=== PATIENT | male | born 1945 | race Caucasian/White ===

== ENCOUNTER 2017-09-06 13:48 | Inpatient (IN) | payer MEDICARE, MEDICAID ==
[~2017-09-06] VITALS: Ht 170.2 cm; Wt 81.7 kg
[2017-09-06 14:26] LABS: BASO % 1 % (0-3); EOS # 0.1 x10^3/uL (0.0-0.7); EOS % 1 % (0-3); HEMATOCRIT 37.5 % (39.0-53.0); HEMOGLOBIN 12.4 g/dL (13.0-17.5); LYMPH # 4.7 x10^3/uL (1.0-4.8); LYMPH % 61 % (24-48); MEAN CORPUSCULAR HEMOGLOBIN 31 pg (25-35); MEAN CORPUSCULAR HGB CONC 33 g/dL (31-37); MEAN CORPUSCULAR VOLUME 94 fL (79-100); MONO # 1.6 x10^3/uL (0.0-1.1); MONO % 20 % (0-9); NEUT # 1.3 x10^3uL (1.8-7.7); NEUT % 17 % (31-73); PLATELET COUNT 56 x10^3/uL (140-400); RED BLOOD COUNT 3.98 x10^6/uL (4.30-5.70); RED CELL DISTRIBUTION WIDTH 15.6 % (11.5-14.5)
[2017-09-06 14:31] LABS: CALCIUM 9.2 mg/dL (8.5-10.1); CREATININE 2.2 mg/dL (0.7-1.3); GFR 29.7; POTASSIUM 4.2 mmol/L (3.5-5.1)
[2017-09-06 14:37] LABS: AMPHETAMINE/METHAMPHETAMINE NEG (NEG); BARBITURATES NEG (NEG); BENZODIAZEPINES NEG (NEG); CANNABINOIDS NEG (NEG); COCAINE NEG (NEG); METHADONE NEG (NEG); OPIATES NEG (NEG); PHENCYCLIDINE NEG (NEG)
[2017-09-06 14:39] LABS: BACTERIA,URINE 0 /HPF (0-FEW); BILIRUBIN,URINE NEG (NEG); CLARITY,URINE CLEAR; COLOR,URINE YELLOW; GLUCOSE,URINE NEG (NEG); HYALINE CASTS, URINE MOD /HPF; NITRITE,URINE NEG (NEG); RBC,URINE 0 /HPF (0-2); UROBILINOGEN,URINE 0.2 mg/dL (0.2 mg/dL); WBC,URINE OCC /HPF (0-4)
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
--- NOTE | 2017-09-06 15:40 | EKG ---
[address] [address] Test Date: 2017-09-06 Test Time: 14:06:04 Pat Name: TIERRA BEST Department: Room: [address] [place] [address] Gender: M Tour Counselor: DANIEL : 1945 Requested By: ELIZABETH BERMAN Order Number: [id number] Reading MD: Luis Alberto Richard MD Measurements Intervals [place] Rate: 74 P: 0 MS: 140 QRS: -47 QRSD: 124 T: 18 QT: 402 QTc: 452 Interpretive Statements SINUS RHYTHM ABNORMAL LEFT AXIS DEVIATION Electronically Signed On 09-11-2017 16:26:27 CDT by Luis Alberto Richard MD
[2017-09-06] MEDS ORDERED: MAG HYDROX/AL HYDROX/SIMETH 30 ML ORAL.SUSP PO PRN (15:45)
[2017-09-06] MEDS ORDERED: METHYL SALICYLATE/MENTHOL TOPICAL OINTMENT 29GM TUBE. TP PRN (15:45)
[2017-09-06] MEDS ORDERED: MAGNESIUM HYDROXIDE 2,400 MG/30 ML ORAL.SUSP. PO PRN (15:45)
[2017-09-06 15:58] VITALS: BP 137/77
[2017-09-06 16:02] LABS: PLT ESTIMATE DECREASED (ADEQUATE)
[2017-09-06 16:03] LABS: TOXIC GRANULATION PRESENT
[2017-09-06 16:11] LABS: TEAR DROP CELLS PRESENT
[2017-09-06 16:18] LABS: POLYCHROMASIA PRESENT
[2017-09-06] MEDS ORDERED: QUET50TA5 PO (16:29)
[2017-09-06] MEDS ORDERED: DIVA500T2 PO (16:29)
[2017-09-06] MEDS ORDERED: LISI40TA PO (16:29)
[2017-09-06] MEDS ORDERED: FURO-69 PO (16:29)
[2017-09-06] MEDS ORDERED: SENN1TAB21 PO (16:29)
[2017-09-06] MEDS ORDERED: VENL75CA PO (16:29)
[2017-09-06] MEDS ORDERED: PANT40TA3 PO (16:29)
[2017-09-06] MEDS ORDERED: POTA10TA10 PO (16:29)
--- NOTE | 2017-09-06 18:32 | PDOC ---
Exam Note: Lawrence Note: Please also refer to the separate dictated note~for this date of service dictated separately.~Patient seen individually. Discussed the patient with Nursing staff reviewed the chart.~Reviewed interim history and current functioning. Reviewed vital signs,~Labs/ Radiology~and current medications noted below. Continue current treatment with the changes noted in the dictated addendum note Assessment: Vital Signs: Vital Signs Date Time Temp Pulse Resp B/P (MAP) Pulse Ox O2 Delivery O2 Flow Rate FiO2 09/06/17 15:58 97.8 78 19 137/77 (97) 96 09/06/17 15:07 Room Air Labs: Laboratory Tests Test 09/06/17 14:02 09/06/17 14:20 White Blood Count 7.7 x10^3/uL (4.0-11.0) Red Blood Count 3.98 x10^6/uL (4.30-5.70) L Hemoglobin 12.4 g/dL (13.0-17.5) L Hematocrit 37.5 % (39.0-53.0) L Mean Corpuscular Volume 94 fL (79-100) Mean Corpuscular Hemoglobin 31 pg (25-35) Mean Corpuscular Hemoglobin Concent 33 g/dL (31-37) Red Cell Distribution Width 15.6 % (11.5-14.5) H Platelet Count 56 x10^3/uL (140-400) L Neutrophils (%) (Auto) 17 % (31-73) L Lymphocytes (%) (Auto) 61 % (24-48) H Monocytes (%) (Auto) 20 % (0-9) H Eosinophils (%) (Auto) 1 % (0-3) Basophils (%) (Auto) 1 % (0-3) Neutrophils # (Auto) 1.3 x10^3uL (1.8-7.7) L Lymphocytes # (Auto) 4.7 x10^3/uL (1.0-4.8) Monocytes # (Auto) 1.6 x10^3/uL (0.0-1.1) H Eosinophils # (Auto) 0.1 x10^3/uL (0.0-0.7) Basophils # (Auto) 0.0 x10^3/uL (0.0-0.2) Segmented Neutrophils % 13 % (35-66) L Band Neutrophils % 2 % (0-9) Lymphocytes % 40 % (24-48) Atypical Lymphocytes % (Manual) 39 % (0-0) H Monocytes % 1 % (0-10) Eosinophils % 2 % (0-5) Basophils % 1 % (0-3) Myelocytes % 1 % (0-0) H Promyelocytes % 1 % (0-0) H Toxic Granulation Present Dohle Bodies Present Platelet Estimate Decreased (ADEQUATE) Polychromasia Present Tear Drop Cells Present Sodium Level 140 mmol/L (136-145) Potassium Level 4.2 mmol/L (3.5-5.1) Chloride Level 104 mmol/L (98-107) Carbon Dioxide Level 22 mmol/L (21-32) Anion Gap 14 (6-14) Blood Urea Nitrogen 23 mg/dL (8-26) Creatinine 2.2 mg/dL (0.7-1.3) H Estimated GFR (Cockcroft-Gault) 29.7 Glucose Level 94 mg/dL (70-99) Calcium Level 9.2 mg/dL (8.5-10.1) Urine Collection Type Unknown Urine Color Yellow Urine Clarity Clear Urine pH 5.0 Urine Specific [place] 1.015 Urine Protein Neg (NEG-TRACE) Urine Glucose (UA) Neg mg/dL (NEG) Urine Ketones (Stick) Neg mg/dL (NEG) Urine Blood Trace (NEG) Urine Nitrite Neg (NEG) Urine Bilirubin Neg (NEG) Urine Urobilinogen Dipstick 0.2 mg/dL (0.2 mg/dL) Urine Leukocyte Esterase Neg (NEG) Urine RBC 0 /HPF (0-2) Urine WBC Occ /HPF (0-4) Urine Squamous Epithelial Cells None /LPF Urine Bacteria 0 /HPF (0-FEW) Urine Hyaline Casts Mod /HPF Urine Mucus Marked /LPF Urine Opiates Screen Neg (NEG) Urine Methadone Screen Neg (NEG) Urine Barbiturates Neg (NEG) Urine Phencyclidine Screen Neg (NEG) Urine Amphetamine/Methamphetamine Neg (NEG) Urine Benzodiazepines Screen Neg (NEG) Urine Cocaine Screen Neg (NEG) Urine Cannabinoids Screen Neg (NEG) Urine Ethyl Alcohol Neg (NEG) Current Medications: Meds: Current Medications Acetaminophen (Tylenol) 650 mg PRN Q6HRS PRN PO PAIN / TEMP; Start 09/06/17 at 15:45 Multi-Ingredient Ointment (Analgesic [place]) 1 paulino PRN QID PRN TP MUSCLE PAIN; Start 09/06/17 at 15:45 Al Hydroxide/Mg Hydroxide (Mylanta Plus Xs) 15 ml PRN AFTMEALHC PRN PO DYSPEPSIA; Start 09/06/17 at 15:45 Magnesium Hydroxide (Milk Of Magnesia) 2,400 mg PRN QHS PRN PO CONSTIPATION; Start 09/06/17 at 15:45 Furosemide (Lasix) 20 mg DAILY PO ; Start 09/07/17 at 09:00 Pantoprazole Sodium (Protonix) 40 mg BID PO ; Start 09/06/17 at 21:00; Stop at 21:00; Status DC Quetiapine Fumarate (SEROquel) 50 mg BID PO ; Start 09/06/17 at 21:00 Senna/Docusate Sodium (Senna Plus) 1 tab BID PO ; Start 09/06/17 at 21:00 Divalproex Sodium (Depakote) 500 mg BID PO ; Start 09/06/17 at 21:00 Lisinopril (Prinivil) 40 mg DAILY PO ; Start 09/07/17 at 09:00 Potassium Chloride (Klor-Con) 20 meq DAILYWBKFT PO ; Start 09/07/17 at 08:00 Venlafaxine HCl (Effexor Xr) 75 mg DAILY PO ; Start 09/07/17 at 09:00 Active Scripts Active Reported Seroquel (Quetiapine Fumarate) 50 Mg Tablet 50 Mg PO BID Senna Plus Tablet (Sennosides/Docusate Sodium) 1 Each Tablet 1 Each PO BID Protonix (Pantoprazole Sodium) 40 Mg Tablet.dr 40 Mg PO BID Potassium Chloride 10 Meq Tablet.er 20 Meq PO DAILY Lisinopril 40 Mg Tablet 40 Mg PO DAILY Lasix (Furosemide) 20 Mg Tablet 20 Mg PO DAILY Effexor Xr (Venlafaxine Hcl) 75 Mg Cap.er.24h 75 Mg PO DAILY Depakote (Divalproex Sodium) 500 Mg Tablet.dr 500 Mg PO BID I have reviewed the current psychotropics carefully including drug interactions. Risk benefit ratio favors no change other than as noted in my dictated progress note. Diagnosis: Problems: (1) Anxiety disorder (2) Dementia in Alzheimer's disease with delusions (3) Dementia in Alzheimer's disease with depression (4) Dementia, vascular, with delusions (5) Dementia, vascular, with depression (6) Impulse control disorder SIVA HUA MD Sep 06, 2017 18:32
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
[2017-09-06] MEDS: DIVALPROEX SODIUM 250 MG TABLET.DR. PO SCH (19:33)
[2017-09-06] MEDS: QUEtiapine 50 MG TABLET. PO SCH (19:33)
[2017-09-06] MEDS: SENNOSIDES/DOCUSATE 8.6/50MG TABLET. PO SCH (19:33)
--- NOTE | 2017-09-06 20:53 | PDOC ---
Exam Note: Lawrence Note: Please also refer to the separate dictated note~for this date of service dictated separately.~Patient seen individually. Discussed the patient with Nursing staff reviewed the chart.~Reviewed interim history and current functioning. Reviewed vital signs,~Labs/ Radiology~and current medications noted below. Continue current treatment with the changes noted in the dictated addendum note Assessment: Vital Signs: Vital Signs Date Time Temp Pulse Resp B/P (MAP) Pulse Ox O2 Delivery O2 Flow Rate FiO2 09/06/17 15:58 97.8 78 19 137/77 (97) 96 09/06/17 15:07 Room Air Labs: Laboratory Tests Test 09/06/17 14:02 09/06/17 14:20 White Blood Count 7.7 x10^3/uL (4.0-11.0) Red Blood Count 3.98 x10^6/uL (4.30-5.70) L Hemoglobin 12.4 g/dL (13.0-17.5) L Hematocrit 37.5 % (39.0-53.0) L Mean Corpuscular Volume 94 fL (79-100) Mean Corpuscular Hemoglobin 31 pg (25-35) Mean Corpuscular Hemoglobin Concent 33 g/dL (31-37) Red Cell Distribution Width 15.6 % (11.5-14.5) H Platelet Count 56 x10^3/uL (140-400) L Neutrophils (%) (Auto) 17 % (31-73) L Lymphocytes (%) (Auto) 61 % (24-48) H Monocytes (%) (Auto) 20 % (0-9) H Eosinophils (%) (Auto) 1 % (0-3) Basophils (%) (Auto) 1 % (0-3) Neutrophils # (Auto) 1.3 x10^3uL (1.8-7.7) L Lymphocytes # (Auto) 4.7 x10^3/uL (1.0-4.8) Monocytes # (Auto) 1.6 x10^3/uL (0.0-1.1) H Eosinophils # (Auto) 0.1 x10^3/uL (0.0-0.7) Basophils # (Auto) 0.0 x10^3/uL (0.0-0.2) Segmented Neutrophils % 13 % (35-66) L Band Neutrophils % 2 % (0-9) Lymphocytes % 40 % (24-48) Atypical Lymphocytes % (Manual) 39 % (0-0) H Monocytes % 1 % (0-10) Eosinophils % 2 % (0-5) Basophils % 1 % (0-3) Myelocytes % 1 % (0-0) H Promyelocytes % 1 % (0-0) H Toxic Granulation Present Dohle Bodies Present Platelet Estimate Decreased (ADEQUATE) Polychromasia Present Tear Drop Cells Present Sodium Level 140 mmol/L (136-145) Potassium Level 4.2 mmol/L (3.5-5.1) Chloride Level 104 mmol/L (98-107) Carbon Dioxide Level 22 mmol/L (21-32) Anion Gap 14 (6-14) Blood Urea Nitrogen 23 mg/dL (8-26) Creatinine 2.2 mg/dL (0.7-1.3) H Estimated GFR (Cockcroft-Gault) 29.7 Glucose Level 94 mg/dL (70-99) Calcium Level 9.2 mg/dL (8.5-10.1) Urine Collection Type Unknown Urine Color Yellow Urine Clarity Clear Urine pH 5.0 Urine Specific [place] 1.015 Urine Protein Neg (NEG-TRACE) Urine Glucose (UA) Neg mg/dL (NEG) Urine Ketones (Stick) Neg mg/dL (NEG) Urine Blood Trace (NEG) Urine Nitrite Neg (NEG) Urine Bilirubin Neg (NEG) Urine Urobilinogen Dipstick 0.2 mg/dL (0.2 mg/dL) Urine Leukocyte Esterase Neg (NEG) Urine RBC 0 /HPF (0-2) Urine WBC Occ /HPF (0-4) Urine Squamous Epithelial Cells None /LPF Urine Bacteria 0 /HPF (0-FEW) Urine Hyaline Casts Mod /HPF Urine Mucus Marked /LPF Urine Opiates Screen Neg (NEG) Urine Methadone Screen Neg (NEG) Urine Barbiturates Neg (NEG) Urine Phencyclidine Screen Neg (NEG) Urine Amphetamine/Methamphetamine Neg (NEG) Urine Benzodiazepines Screen Neg (NEG) Urine Cocaine Screen Neg (NEG) Urine Cannabinoids Screen Neg (NEG) Urine Ethyl Alcohol Neg (NEG) Current Medications: Meds: Current Medications Acetaminophen (Tylenol) 650 mg PRN Q6HRS PRN PO PAIN / TEMP; Start 09/06/17 at 15:45 Multi-Ingredient Ointment (Analgesic [place]) 1 paulino PRN QID PRN TP MUSCLE PAIN; Start 09/06/17 at 15:45 Al Hydroxide/Mg Hydroxide (Mylanta Plus Xs) 15 ml PRN AFTMEALHC PRN PO DYSPEPSIA; Start 09/06/17 at 15:45 Magnesium Hydroxide (Milk Of Magnesia) 2,400 mg PRN QHS PRN PO CONSTIPATION; Start 09/06/17 at 15:45 Furosemide (Lasix) 20 mg DAILY PO ; Start 09/07/17 at 09:00 Pantoprazole Sodium (Protonix) 40 mg BID PO ; Start 09/06/17 at 21:00; Stop at 21:00; Status DC Quetiapine Fumarate (SEROquel) 50 mg BID PO Last administered on 09/06/17at 19:33 ; Start 09/06/17 at 21:00 Senna/Docusate Sodium (Senna Plus) 1 tab BID PO Last administered on 09/06/17at 19:33; Start 09/06/17 at 21:00 Divalproex Sodium (Depakote) 500 mg BID PO Last administered on 09/06/17at 19:33 ; Start 09/06/17 at 21:00 Lisinopril (Prinivil) 40 mg DAILY PO ; Start 09/07/17 at 09:00 Potassium Chloride (Klor-Con) 20 meq DAILYWBKFT PO ; Start 09/07/17 at 08:00 Venlafaxine HCl (Effexor Xr) 75 mg DAILY PO ; Start 09/07/17 at 09:00 Active Scripts Active Reported Seroquel (Quetiapine Fumarate) 50 Mg Tablet 50 Mg PO BID Senna Plus Tablet (Sennosides/Docusate Sodium) 1 Each Tablet 1 Each PO BID Protonix (Pantoprazole Sodium) 40 Mg Tablet.dr 40 Mg PO BID Potassium Chloride 10 Meq Tablet.er 20 Meq PO DAILY Lisinopril 40 Mg Tablet 40 Mg PO DAILY Lasix (Furosemide) 20 Mg Tablet 20 Mg PO DAILY Effexor Xr (Venlafaxine Hcl) 75 Mg Cap.er.24h 75 Mg PO DAILY Depakote (Divalproex Sodium) 500 Mg Tablet.dr 500 Mg PO BID I have reviewed the current psychotropics carefully including drug interactions. Risk benefit ratio favors no change other than as noted in my dictated progress note. Diagnosis: Problems: (1) Agitation (2) Anxiety disorder (3) Impulse control disorder (4) Dementia, vascular, with depression (5) Dementia, vascular, with delusions (6) Dementia in Alzheimer's disease with depression (7) Dementia in Alzheimer's disease with delusions SIVA HUA MD Sep 06, 2017 20:53
[2017-09-06] MEDS ORDERED: PANTOPRAZOLE 40 MG TABLET. PO SCH (21:00)
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
[2017-09-07 05:48] VITALS: BP 146/69
[2017-09-07 07:16] LABS: VAL ACID 71 mcg/mL (50-100)
[2017-09-07] MEDS ORDERED: POTASSIUM CHLORIDE 20 MEQ TABLET.ER. PO SCH (08:00)
[2017-09-07] MEDS: DIVALPROEX SODIUM 250 MG TABLET.DR. PO SCH (08:36)
[2017-09-07] MEDS: QUEtiapine 50 MG TABLET. PO SCH ×2 (08:36→19:42)
[2017-09-07] MEDS: SENNOSIDES/DOCUSATE 8.6/50MG TABLET. PO SCH ×2 (08:36→19:42)
[2017-09-07] MEDS: VENLAFAXINE XR 37.5 MG CAP.ER.24H. PO SCH (08:40)
[2017-09-07] MEDS ORDERED: LISINOPRIL 20 MG TABLET PO SCH (09:00)
[2017-09-07] MEDS ORDERED: FUROSEMIDE 20 MG TABLET PO SCH (09:00)
[2017-09-07] MEDS: QUEtiapine 25 MG TABLET. PO SCH (11:58)
--- NOTE | 2017-09-07 14:07 | RAD ---
Renal ultrasound, 09/07/2017: History: Abnormal renal function The right kidney measures 7.5 cm in length while the left kidney measures 10.3 cm. A 1.9 cm parapelvic renal cyst is present on the left. There is no evidence of hydronephrosis. The renal parenchymal echogenicity is within normal limits. The bladder was not adequately delineated due to lack of distention. IMPRESSION: 1. Small left renal cyst. 2. Small right kidney. 3. No evidence of renal obstruction.
[2017-09-07 14:29] LABS: THYROID STIM HORMONE (TSH) 2.962 uIU/mL (0.358-3.740)
[2017-09-07 16:22] VITALS: BP 135/74
[2017-09-07 19:10] LABS: T3 TOTAL 22 ng/dL (71-180)
[2017-09-07] MEDS: DIVALPROEX 125 MG CAP.SPRINK PO SCH (19:43)
[2017-09-07] MEDS: CHOLECALCIFEROL (VITAMIN D3) 50,000 UNIT CAPSULE PO SCH (19:43)
--- NOTE | 2017-09-07 20:51 | PDOC ---
Exam Note: [place] Note: Please also refer to the separate dictated note~for this date of service dictated separately.~Patient seen individually. Discussed the patient with Nursing staff reviewed the chart.~Reviewed interim history and current functioning. Reviewed vital signs,~Labs/ Radiology~and current medications noted below. Continue current treatment with the changes noted in the dictated addendum note Assessment: Vital Signs: Vital Signs Date Time Temp Pulse Resp B/P (MAP) Pulse Ox O2 Delivery O2 Flow Rate FiO2 09/07/17 16:22 97.6 81 18 135/74 (94) 93 09/06/17 15:07 Room Air I&O Intake and Output 09/07/17 07:00 Intake Total 360 ml Balance 360 ml Intake Oral 360 ml # Voids 1 Labs: Laboratory Tests Test 09/07/17 06:30 Magnesium Level 1.8 mg/dL (1.8-2.4) Iron Level 182 ug/dL (65-175) H Total Iron Binding Capacity 281 ug/dL (250-450) Iron Saturation 65 % (15-34) H Triglycerides Level 230 mg/dL (0-150) H Cholesterol Level 151 mg/dL (0-200) LDL Cholesterol, Calculated 70 mg/dL (0-100) VLDL Cholesterol, Calculated 46 mg/dL (0-40) H Non-HDL Cholesterol Calculated 116 mg/dL (0-129) HDL Cholesterol 35 mg/dL (40-60) L Cholesterol/HDL Ratio 4.0 Vitamin B12 Level 300 pg/mL (247-911) 25-Hydroxy Vitamin D Total < 4.2 ng/mL (30-100) L Thyroid Stimulating Hormone (TSH) 2.962 uIU/mL (0.358-3.740) Thyroxine (T4) Pending Total Triiodothyronine (TT3) 22 ng/dL (71-180) L Valproic Acid Level 71 mcg/mL (50-100) Valproic Acid Last Dose Date 09/06/2017 Valproic Acid Last Dose Time 2100 Rapid Plasma Reagin Pending Current Medications: Meds: Current Medications Acetaminophen (Tylenol) 650 mg PRN Q6HRS PRN PO PAIN / TEMP; Start 09/06/17 at 15:45 Multi-Ingredient Ointment (Analgesic [place]) 1 paulino PRN QID PRN TP MUSCLE PAIN; Start 09/06/17 at 15:45 Al Hydroxide/Mg Hydroxide (Mylanta Plus Xs) 15 ml PRN AFTMEALHC PRN PO DYSPEPSIA; Start 09/06/17 at 15:45 Magnesium Hydroxide (Milk Of Magnesia) 2,400 mg PRN QHS PRN PO CONSTIPATION; Start 09/06/17 at 15:45 Furosemide (Lasix) 20 mg DAILY PO Last administered on 09/07/17 08:40; Start at 09:00; Stop 09/07/17 at 18:21; Status DC Pantoprazole Sodium (Protonix) 40 mg BID PO ; Start 09/06/17 at 21:00; Stop at 21:00; Status DC Quetiapine Fumarate (SEROquel) 50 mg BID PO Last administered on 09/07/17 19:42 ; Start 09/06/17 at 21:00 Senna/Docusate Sodium (Senna Plus) 1 tab BID PO Last administered on 09/07/17 19:42; Start 09/06/17 at 21:00 Divalproex Sodium (Depakote) 500 mg BID PO Last administered on 09/07/17 08:36 ; Start 09/06/17 at 21:00; Stop 09/07/17 at 18:28; Status DC Lisinopril (Prinivil) 40 mg DAILY PO Last administered on 09/07/17 08:40; Start 09/07/17 at 09:00; Stop 09/07/17 at 18:21; Status DC Potassium Chloride (Klor-Con) 20 meq DAILYWBKFT PO Last administered on 08:40; Start 09/07/17 at 08:00; Stop 09/07/17 at 18:21; Status DC Venlafaxine HCl (Effexor Xr) 75 mg DAILY PO Last administered on 09/07/17 08:40 ; Start 09/07/17 at 09:00 Quetiapine Fumarate (SEROquel) 12.5 mg NOON PO Last administered on 09/07/17 11 :58; Start 09/07/17 at 12:00 Vitamin D (Vitamin D3) 50,000 unit WEEKLY PO Last administered on 09/07/17 19: 43; Start 09/07/17 at 19:00 Divalproex Sodium (Depakote Sprinkles) 500 mg BID PO Last administered on at 19:43; Start 09/07/17 at 21:00 Active Scripts Active Reported Seroquel (Quetiapine Fumarate) 50 Mg Tablet 50 Mg PO BID Senna Plus Tablet (Sennosides/Docusate Sodium) 1 Each Tablet 1 Each PO BID Protonix (Pantoprazole Sodium) 40 Mg Tablet.dr 40 Mg PO BID Potassium Chloride 10 Meq Tablet.er 20 Meq PO DAILY Lisinopril 40 Mg Tablet 40 Mg PO DAILY Lasix (Furosemide) 20 Mg Tablet 20 Mg PO DAILY Effexor Xr (Venlafaxine Hcl) 75 Mg Cap.er.24h 75 Mg PO DAILY Depakote (Divalproex Sodium) 500 Mg Tablet.dr 500 Mg PO BID I have reviewed the current psychotropics carefully including drug interactions. Risk benefit ratio favors no change other than as noted in my dictated progress note. Diagnosis: Problems: (1) Agitation (2) Anxiety disorder (3) Impulse control disorder (4) Dementia, vascular, with depression (5) Dementia, vascular, with delusions (6) Dementia in Alzheimer's disease with depression (7) Dementia in Alzheimer's disease with delusions SIVA HUA MD Sep 07, 2017 20:51
[2017-09-07 22:09] LABS: THYROXINE 1.1 ug/dL (4.5-12.0)
[2017-09-08 06:16] VITALS: BP 123/83
[2017-09-08] MEDS: DIVALPROEX 125 MG CAP.SPRINK PO SCH ×2 (09:31→20:10)
[2017-09-08] MEDS: SENNOSIDES/DOCUSATE 8.6/50MG TABLET. PO SCH ×2 (09:31→20:10)
[2017-09-08] MEDS: VENLAFAXINE XR 37.5 MG CAP.ER.24H. PO SCH (09:31)
[2017-09-08] MEDS: QUEtiapine 50 MG TABLET. PO SCH ×2 (09:31→20:10)
[2017-09-08 10:20] LABS: % SEGS 7 % (35-66)
[2017-09-08 10:21] LABS: % BANDS 9 % (0-9); % BASOS 0 % (0-3); % EOS 0 % (0-5); % LYMPHS 37 % (24-48); % MONOS 0 % (0-10)
[2017-09-08 10:22] LABS: % OTHERS 46 % (0-0); % PROS 0 % (0-0)
[2017-09-08 10:23] LABS: % ATYL 0 % (0-0)
[2017-09-08 10:25] LABS: NUCLEATED RBC 13
[2017-09-08 10:38] LABS: WHITE BLOOD COUNT 6.8 x10^3/uL (4.0-11.0)
[2017-09-08] MEDS: QUEtiapine 25 MG TABLET. PO SCH (11:57)
[2017-09-08 12:13] LABS: % MYELOS 1 % (0-0)
[2017-09-08 15:51] VITALS: BP 112/72
--- NOTE | 2017-09-08 23:13 | PDOC ---
Exam Note: [place] Note: Please also refer to the separate dictated note~for this date of service dictated separately.~Patient seen individually. Discussed the patient with Nursing staff reviewed the chart.~Reviewed interim history and current functioning. Reviewed vital signs,~Labs/ Radiology~and current medications noted below. Continue current treatment with the changes noted in the dictated addendum note Assessment: Vital Signs: Vital Signs Date Time Temp Pulse Resp B/P (MAP) Pulse Ox O2 Delivery O2 Flow Rate FiO2 09/08/17 15:51 97.5 74 18 112/72 (85) 100 09/06/17 15:07 Room Air I&O Intake and Output 09/08/17 07:00 Intake Total 1080 ml Balance 1080 ml Intake Oral 1080 ml Current Medications: Meds: Current Medications Acetaminophen (Tylenol) 650 mg PRN Q6HRS PRN PO PAIN / TEMP; Start 09/06/17 at 15:45 Multi-Ingredient Ointment (Analgesic [place]) 1 paulino PRN QID PRN TP MUSCLE PAIN; Start 09/06/17 at 15:45 Al Hydroxide/Mg Hydroxide (Mylanta Plus Xs) 15 ml PRN AFTMEALHC PRN PO DYSPEPSIA; Start 09/06/17 at 15:45 Magnesium Hydroxide (Milk Of Magnesia) 2,400 mg PRN QHS PRN PO CONSTIPATION; Start 09/06/17 at 15:45 Furosemide (Lasix) 20 mg DAILY PO Last administered on 09/07/17at 08:40; Start at 09:00; Stop 09/07/17 at 18:21; Status DC Pantoprazole Sodium (Protonix) 40 mg BID PO ; Start 09/06/17 at 21:00; Stop at 21:00; Status DC Quetiapine Fumarate (SEROquel) 50 mg BID PO Last administered on 09/08/17at 20:10 ; Start 09/06/17 at 21:00 Senna/Docusate Sodium (Senna Plus) 1 tab BID PO Last administered on 09/08/17at 20:10; Start 09/06/17 at 21:00 Divalproex Sodium (Depakote) 500 mg BID PO Last administered on 09/07/17at 08:36 ; Start 09/06/17 at 21:00; Stop 4/5/18 at 18:28; Status DC Lisinopril (Prinivil) 40 mg DAILY PO Last administered on 09/07/17 08:40; Start 09/07/17 at 09:00; Stop 09/07/17 at 18:21; Status DC Potassium Chloride (Klor-Con) 20 meq DAILYWBKFT PO Last administered on at 08:40; Start 09/07/17 at 08:00; Stop 09/07/17 at 18:21; Status DC Venlafaxine HCl (Effexor Xr) 75 mg DAILY PO Last administered on 09/08/17 09:31 ; Start 09/07/17 at 09:00 Quetiapine Fumarate (SEROquel) 12.5 mg NOON PO Last administered on 09/08/17 11 :57; Start 09/07/17 at 12:00 Vitamin D (Vitamin D3) 50,000 unit WEEKLY PO Last administered on 09/07/17at 19: 43; Start 09/07/17 at 19:00 Divalproex Sodium (Depakote Sprinkles) 500 mg BID PO Last administered on at 20:10; Start 09/07/17 at 21:00 Active Scripts Active Reported Seroquel (Quetiapine Fumarate) 50 Mg Tablet 50 Mg PO BID Senna Plus Tablet (Sennosides/Docusate Sodium) 1 Each Tablet 1 Each PO BID Protonix (Pantoprazole Sodium) 40 Mg Tablet.dr 40 Mg PO BID Potassium Chloride 10 Meq Tablet.er 20 Meq PO DAILY Lisinopril 40 Mg Tablet 40 Mg PO DAILY Lasix (Furosemide) 20 Mg Tablet 20 Mg PO DAILY Effexor Xr (Venlafaxine Hcl) 75 Mg Cap.er.24h 75 Mg PO DAILY Depakote (Divalproex Sodium) 500 Mg Tablet.dr 500 Mg PO BID I have reviewed the current psychotropics carefully including drug interactions. Risk benefit ratio favors no change other than as noted in my dictated progress note. Diagnosis: Problems: (1) Agitation (2) Anxiety disorder (3) Impulse control disorder (4) Dementia, vascular, with depression (5) Dementia, vascular, with delusions (6) Dementia in Alzheimer's disease with depression (7) Dementia in Alzheimer's disease with delusions SIVA HUA MD Sep 08, 2017 23:13
--- NOTE | 2017-09-08 23:53 | PN ---
DATE: 09/07/2017 This late entry 09/07/2017 covers elements not covered in my initial note 09/07/2017. I met with the patient in the evening of 09/07/2017 and he was staffed at a treatment team meeting with the entire team morning of 09/07/2017. Overall, the patient has had some difficulty taking his medications and nursing staff had paged me earlier in the day. We changed the Depakote delayed release to Sprinkles. At the treatment team meeting, reviewed his history and behaviors prompting admission including cursing and swinging at staff at this closed fist. He is a little more oriented than he seems on the surface, however. REVIEW OF SYSTEMS: Ambulation impaired, in wheelchair. No CV, , pulmonary, eye, ENT system symptoms on review. MENTAL STATUS EXAM: Oriented to himself and situation. Speech moderate latency, often responses monosyllabic. Abstraction fair, computation impaired, language function intact, attention span short. Memory is impaired. No active suicidal or homicidal ideation. IMPRESSION: Major neurocognitive disorder, vascular with delusion, depression, behavioral disturbance, major depressive disorder with psychotic features; impulse control disorder. Rest unchanged from initial note. PLAN: Valproic acid level is 71 therapeutic. Continue Depakote Sprinkles, Effexor along with increased Seroquel. Adjust further as clinically indicated. MAN Aleksey HUA MD DR: JENY/charlette JOB#: [id number] / [id number]
[2017-09-09 05:47] VITALS: BP 129/65
[2017-09-09] MEDS: DIVALPROEX 125 MG CAP.SPRINK PO SCH ×2 (08:24→19:43)
[2017-09-09] MEDS: QUEtiapine 50 MG TABLET. PO SCH ×2 (08:24→19:43)
[2017-09-09] MEDS: VENLAFAXINE XR 37.5 MG CAP.ER.24H. PO SCH (08:25)
[2017-09-09] MEDS: SENNOSIDES/DOCUSATE 8.6/50MG TABLET. PO SCH ×2 (08:25→19:43)
[2017-09-09] MEDS: QUEtiapine 25 MG TABLET. PO SCH (12:17)
[2017-09-09 15:58] VITALS: BP 128/68
--- NOTE | 2017-09-09 22:45 | PDOC ---
Exam Note: [place] Note: Please also refer to the separate dictated note~for this date of service dictated separately.~Patient seen individually. Discussed the patient with Nursing staff reviewed the chart.~Reviewed interim history and current functioning. Reviewed vital signs,~Labs/ Radiology~and current medications noted below. Continue current treatment with the changes noted in the dictated addendum note Assessment: Vital Signs: Vital Signs Date Time Temp Pulse Resp B/P (MAP) Pulse Ox O2 Delivery O2 Flow Rate FiO2 09/09/17 15:58 96.7 73 18 128/68 (88) 95 09/06/17 15:07 Room Air I&O Intake and Output 09/09/17 07:00 Intake Total 960 ml Balance 960 ml Intake Oral 960 ml # Bowel Movements 1 Current Medications: Meds: Current Medications Acetaminophen (Tylenol) 650 mg PRN Q6HRS PRN PO PAIN / TEMP; Start 09/06/17 at 15:45 Multi-Ingredient Ointment (Analgesic [place]) 1 paulino PRN QID PRN TP MUSCLE PAIN; Start 09/06/17 at 15:45 Al Hydroxide/Mg Hydroxide (Mylanta Plus Xs) 15 ml PRN AFTMEALHC PRN PO DYSPEPSIA; Start 09/06/17 at 15:45 Magnesium Hydroxide (Milk Of Magnesia) 2,400 mg PRN QHS PRN PO CONSTIPATION; Start 09/06/17 at 15:45 Furosemide (Lasix) 20 mg DAILY PO Last administered on 09/07/17at 08:40; Start at 09:00; Stop 09/07/17 at 18:21; Status DC Pantoprazole Sodium (Protonix) 40 mg BID PO ; Start 09/06/17 at 21:00; Stop at 21:00; Status DC Quetiapine Fumarate (SEROquel) 50 mg BID PO Last administered on 09/09/17at 19:43 ; Start 09/06/17 at 21:00 Senna/Docusate Sodium (Senna Plus) 1 tab BID PO Last administered on 09/09/17at 19:43; Start 09/06/17 at 21:00 Divalproex Sodium (Depakote) 500 mg BID PO Last administered on 09/07/17at 08:36 ; Start 09/06/17 at 21:00; Stop 09/07/17 at 18:28; Status DC Lisinopril (Prinivil) 40 mg DAILY PO Last administered on 09/07/17 08:40; Start 09/07/17 at 09:00; Stop 09/07/17 at 18:21; Status DC Potassium Chloride (Klor-Con) 20 meq DAILYWBKFT PO Last administered on 08:40; Start 09/07/17 at 08:00; Stop 09/07/17 at 18:21; Status DC Venlafaxine HCl (Effexor Xr) 75 mg DAILY PO Last administered on 09/09/17 08:25 ; Start 09/07/17 at 09:00 Quetiapine Fumarate (SEROquel) 12.5 mg NOON PO Last administered on 09/09/17 12 :17; Start 09/07/17 at 12:00 Vitamin D (Vitamin D3) 50,000 unit WEEKLY PO Last administered on 09/07/17 19: 43; Start 09/07/17 at 19:00 Divalproex Sodium (Depakote Sprinkles) 500 mg BID PO Last administered on 19:43; Start 09/07/17 at 21:00 Active Scripts Active Reported Seroquel (Quetiapine Fumarate) 50 Mg Tablet 50 Mg PO BID Senna Plus Tablet (Sennosides/Docusate Sodium) 1 Each Tablet 1 Each PO BID Protonix (Pantoprazole Sodium) 40 Mg Tablet. 40 Mg PO BID Potassium Chloride 10 Meq Tablet.er 20 Meq PO DAILY Lisinopril 40 Mg Tablet 40 Mg PO DAILY Lasix (Furosemide) 20 Mg Tablet 20 Mg PO DAILY Effexor Xr (Venlafaxine Hcl) 75 Mg Cap.er.24h 75 Mg PO DAILY Depakote (Divalproex Sodium) 500 Mg Tablet.dr 500 Mg PO BID I have reviewed the current psychotropics carefully including drug interactions. Risk benefit ratio favors no change other than as noted in my dictated progress note. Diagnosis: Problems: (1) Agitation (2) Anxiety disorder (3) Impulse control disorder (4) Dementia, vascular, with depression (5) Dementia, vascular, with delusions (6) Dementia in Alzheimer's disease with depression (7) Dementia in Alzheimer's disease with delusions SIVA HUA MD Sep 09, 2017 22:45
[2017-09-10 05:52] VITALS: BP 134/71
[2017-09-10] MEDS: QUEtiapine 50 MG TABLET. PO SCH ×2 (07:52→19:49)
[2017-09-10] MEDS: SENNOSIDES/DOCUSATE 8.6/50MG TABLET. PO SCH ×2 (07:52→19:49)
[2017-09-10] MEDS: DIVALPROEX 125 MG CAP.SPRINK PO SCH ×2 (07:52→19:49)
[2017-09-10] MEDS: VENLAFAXINE XR 37.5 MG CAP.ER.24H. PO SCH (07:53)
[2017-09-10] MEDS: QUEtiapine 25 MG TABLET. PO SCH (11:55)
[2017-09-10 15:40] VITALS: BP 104/74
[2017-09-10] MEDS ORDERED: CHOLECALCIFEROL (VITAMIN D3) 50,000 UNIT CAPSULE PO SCH (16:00)
--- NOTE | 2017-09-10 20:50 | PDOC ---
Exam Note: [place] Note: Please also refer to the separate dictated note~for this date of service dictated separately.~Patient seen individually. Discussed the patient with Nursing staff reviewed the chart.~Reviewed interim history and current functioning. Reviewed vital signs,~Labs/ Radiology~and current medications noted below. Continue current treatment with the changes noted in the dictated addendum note Assessment: Vital Signs: Vital Signs Date Time Temp Pulse Resp B/P (MAP) Pulse Ox O2 Delivery O2 Flow Rate FiO2 09/10/17 15:40 97.9 75 20 104/74 (84) 95 09/06/17 15:07 Room Air I&O Intake and Output 09/10/17 07:00 Intake Total 1000 ml Balance 1000 ml Intake Oral 1000 ml # Bowel Movements 1 Current Medications: Meds: Current Medications Acetaminophen (Tylenol) 650 mg PRN Q6HRS PRN PO PAIN / TEMP; Start 09/06/17 at 15:45 Multi-Ingredient Ointment (Analgesic [place]) 1 paulino PRN QID PRN TP MUSCLE PAIN; Start 09/06/17 at 15:45 Al Hydroxide/Mg Hydroxide (Mylanta Plus Xs) 15 ml PRN AFTMEALHC PRN PO DYSPEPSIA; Start 09/06/17 at 15:45 Magnesium Hydroxide (Milk Of Magnesia) 2,400 mg PRN QHS PRN PO CONSTIPATION; Start 09/06/17 at 15:45 Furosemide (Lasix) 20 mg DAILY PO Last administered on 09/07/17at 08:40; Start at 09:00; Stop 09/07/17 at 18:21; Status DC Pantoprazole Sodium (Protonix) 40 mg BID PO ; Start 09/06/17 at 21:00; Stop at 21:00; Status DC Quetiapine Fumarate (SEROquel) 50 mg BID PO Last administered on 09/10/17 19:49 ; Start 09/06/17 at 21:00 Senna/Docusate Sodium (Senna Plus) 1 tab BID PO Last administered on 09/10/17at 19:49; Start 09/06/17 at 21:00 Divalproex Sodium (Depakote) 500 mg BID PO Last administered on 09/07/17at 08:36 ; Start 09/06/17 at 21:00; Stop 09/07/17 at 18:28; Status DC Lisinopril (Prinivil) 40 mg DAILY PO Last administered on 09/07/17at 08:40; Start 09/07/17 at 09:00; Stop 09/07/17 at 18:21; Status DC Potassium Chloride (Klor-Con) 20 meq DAILYWBKFT PO Last administered on at 08:40; Start 09/07/17 at 08:00; Stop 09/07/17 at 18:21; Status DC Venlafaxine HCl (Effexor Xr) 75 mg DAILY PO Last administered on 09/10/17at 07:53 ; Start 09/07/17 at 09:00 Quetiapine Fumarate (SEROquel) 12.5 mg NOON PO Last administered on 09/10/17at 11 :55; Start 09/07/17 at 12:00; Stop 09/10/17 at 18:18; Status DC Vitamin D (Vitamin D3) 50,000 unit WEEKLY PO Last administered on 09/07/17at 19: 43; Start 09/07/17 at 19:00 Divalproex Sodium (Depakote Sprinkles) 500 mg BID PO Last administered on at 19:49; Start 09/07/17 at 21:00 Vitamin D (Vitamin D3) 50,000 unit WEEKLY PO ; Start 09/10/17 at 16:00; Stop 09/10 at 16:00; Status DC Levothyroxine Sodium (Synthroid) 25 mcg DAILY07 PO ; Start 09/11/17 at 07:00 Quetiapine Fumarate (SEROquel) 25 mg NOON PO ; Start 09/11/17 at 12:00 Active Scripts Active Reported Seroquel (Quetiapine Fumarate) 50 Mg Tablet 50 Mg PO BID Senna Plus Tablet (Sennosides/Docusate Sodium) 1 Each Tablet 1 Each PO BID Protonix (Pantoprazole Sodium) 40 Mg Tablet.dr 40 Mg PO BID Potassium Chloride 10 Meq Tablet.er 20 Meq PO DAILY Lisinopril 40 Mg Tablet 40 Mg PO DAILY Lasix (Furosemide) 20 Mg Tablet 20 Mg PO DAILY Effexor Xr (Venlafaxine Hcl) 75 Mg Cap.er.24h 75 Mg PO DAILY Depakote (Divalproex Sodium) 500 Mg Tablet.dr 500 Mg PO BID I have reviewed the current psychotropics carefully including drug interactions. Risk benefit ratio favors no change other than as noted in my dictated progress note. Diagnosis: Problems: (1) Agitation (2) Anxiety disorder (3) Impulse control disorder (4) Dementia, vascular, with depression (5) Dementia, vascular, with delusions (6) Dementia in Alzheimer's disease with depression (7) Dementia in Alzheimer's disease with delusions SIVA HUA MD Sep 10, 2017 20:50
--- NOTE | 2017-09-10 21:49 | PN ---
DATE: 09/10/2017 This is late entry of 09/08/2017 covers elements not covered in my initial note 09/08/2017. Met with the patient in the evening of 09/08/2017. The patient slept 8 hours previous evening, did well the previous night, did reasonably well morning of 09/08/2017. After lunch, he was yelling in the hallway agitated. Nursing staff gave him coca-cola, which is something seems to assuage his agitation and he did better. REVIEW OF SYSTEMS: Ambulation impaired. No CV, , pulmonary, eye, ENT system symptoms on review. Reliability poor. MENTAL STATUS EXAM: Oriented to self, situation. Speech has some latency, often responses monosyllabic. Abstraction fair, computation impaired, language function intact, attention span short. Mood and affect somewhat anxious, labile. LABORATORY DATA: Reviewed. IMPRESSION: Major neurocognitive disorder, Alzheimer, vascular with delusion, depression Rest unchanged. PLAN: Continue current psychotropics. Adjust as clinically indicated. MAN Aleksey HUA MD DR: JENY/charlette JOB#: [id number] / [id number]
--- NOTE | 2017-09-10 22:14 | PN ---
DATE: 09/09/2017 This late entry of 09/09/2017 covers elements not covered in my initial note for 09/09/2017. SUBJECTIVE: I met with the patient in the evening of 09/09/2017. The patient remains somewhat withdrawn at times, yelling, cursing in the [place], resistive with meds and assessment. REVIEW OF SYSTEMS: Ambulation impaired, in wheelchair. No CV, , pulmonary, eye, ENT system symptoms on review. Reliability poor. MENTAL STATUS EXAM: Oriented to himself and situation. Speech moderate latency, often responses monosyllabic. Abstraction fair, computation impaired, language function intact, attention span short. Mood and affect, intermittently labile. LABORATORY DATA: Reviewed. Valproic acid level therapeutic at 71. IMPRESSION: Major depressive disorder with psychotic features; major neurocognitive disorder, Alzheimer, vascular with delusion, depression. PLAN: Continue current psychotropics, increase the noon Seroquel from 12.5 to 25 mg. Adjust further as clinically indicated. MAN Aleksey HUA MD DR: JENY/charlette JOB#: [id number] / [id number]
--- NOTE | 2017-09-11 00:43 | PN ---
DATE: 09/10/2017 SUBJECTIVE: The patient was seen today to go over his lab work and it showed that he has his vitamin D is low at 4.2 and although, the TSH is normal. His total T4 and free T4 were low. His serum iron is 182, but TIBC is low at 281, and he has obviously thrombocytopenia with a lymphocytosis, although I did have no documentation that he has chronic lymphatic leukemia. OBJECTIVE: GENERAL: On examining him, he is generally hemodynamically stable. VITAL SIGNS: His heart rate was 75, blood pressure 104/74, temperature was 97.9, respiratory rate 20, and oxygen saturation was 95%. The rest of clinical exam is stable. He continued to be wheelchair bound wheeling himself around. I did start him on ergocalciferol 50,000 International Units once a week. I have also started him on a small dose of Synthroid 25 mcg once a day given his lab abnormalities. I will repeat all her lab works again tomorrow as we stopped all his antihypertensive especially, the LESLEY inhibitors and diuretics a few days ago. LINDY THOMPSON MD DR: JO/charlette JOB#: [id number] / [id number]
[2017-09-11 06:17] VITALS: BP 116/74
[2017-09-11] MEDS: LEVOTHYROXINE 25 MCG TABLET. PO SCH (06:24)
[2017-09-11 07:38] LABS: HEMATOCRIT 34.9 % (39.0-53.0); HEMOGLOBIN 11.8 g/dL (13.0-17.5); RED BLOOD COUNT 3.73 x10^6/uL (4.30-5.70); RED CELL DISTRIBUTION WIDTH 16.2 % (11.5-14.5)
[2017-09-11 07:45] LABS: ALBUMIN 2.4 g/dL (3.4-5.0); ALBUMIN/GLOBULIN RATIO 0.6 (1.0-1.7); CALCIUM 9.1 mg/dL (8.5-10.1); CREATININE 1.9 mg/dL (0.7-1.3); GFR 35.2; POTASSIUM 4.7 mmol/L (3.5-5.1); TOTAL BILIRUBIN 0.2 mg/dL (0.2-1.0); TOTAL PROTEIN 6.5 g/dL (6.4-8.2)
[2017-09-11] MEDS: VENLAFAXINE XR 37.5 MG CAP.ER.24H. PO SCH (08:24)
[2017-09-11] MEDS: QUEtiapine 50 MG TABLET. PO SCH ×2 (08:24→19:27)
[2017-09-11] MEDS: DIVALPROEX 125 MG CAP.SPRINK PO SCH ×2 (08:24→19:27)
[2017-09-11] MEDS: SENNOSIDES/DOCUSATE 8.6/50MG TABLET. PO SCH ×2 (08:25→19:27)
[2017-09-11] MEDS: QUEtiapine 25 MG TABLET. PO SCH (12:05)
[2017-09-11 16:08] VITALS: BP 117/78
--- NOTE | 2017-09-11 21:26 | PN ---
DATE: 09/10/2017 PSYCHIATRIC PROGRESS NOTE This is a late entry for 09/10/2017, covers elements not covered in my initial note of 09/10/2017. SUBJECTIVE: I met with the patient in the evening of 09/10/2017. The patient did well in the morning, but by the afternoon, he was quite agitated with another patient, tried to hit this other patient, cursing, loud, disruptive, staff members noted behaviors, some of what prompted this admission. REVIEW OF SYSTEMS: Ambulation impaired, in wheelchair. No CV, , pulmonary, eye, ENT system symptoms on review. MENTAL STATUS EXAM: Oriented to himself and situation. Speech coherent, rapid. Abstraction fair, computation impaired, language function intact, attention span short. Mood and affect remain somewhat labile. LABORATORY DATA: Reviewed. IMPRESSION: Dementia, Alzheimer, vascular with depression, delusion, behavioral disturbance; anxiety disorder, unspecified; impulse control disorder, unspecified. PLAN: Increase the noon Seroquel from 12.5 mg to 25 mg. Maintain rest of the psychotropics mentioned in my initial note. Valproic acid level therapeutic at 71. MAN Aleksey HUA MD DR: JENY/charlette JOB#: [id number] / [id number]
--- NOTE | 2017-09-11 22:00 | PDOC ---
Exam Note: Lawrence Note: Please also refer to the separate dictated note~for this date of service dictated separately.~Patient seen individually. Discussed the patient with Nursing staff reviewed the chart.~Reviewed interim history and current functioning. Reviewed vital signs,~Labs/ Radiology~and current medications noted below. Continue current treatment with the changes noted in the dictated addendum note Assessment: Vital Signs: Vital Signs Date Time Temp Pulse Resp B/P (MAP) Pulse Ox O2 Delivery O2 Flow Rate FiO2 09/11/17 16:08 98.0 75 16 117/78 (91) 97 09/06/17 15:07 Room Air I&O Intake and Output 09/11/17 07:00 Intake Total 1240 ml Balance 1240 ml Intake Oral 1240 ml # Voids 2 # Bowel Movements 1 Labs: Laboratory Tests Test 09/11/17 07:03 White Blood Count 6.0 x10^3/uL (4.0-11.0) Red Blood Count 3.73 x10^6/uL (4.30-5.70) L Hemoglobin 11.8 g/dL (13.0-17.5) L Hematocrit 34.9 % (39.0-53.0) L Mean Corpuscular Volume 94 fL (79-100) Mean Corpuscular Hemoglobin 32 pg (25-35) Mean Corpuscular Hemoglobin Concent 34 g/dL (31-37) Red Cell Distribution Width 16.2 % (11.5-14.5) H Platelet Count 55 x10^3/uL (140-400) L Sodium Level 142 mmol/L (136-145) Potassium Level 4.7 mmol/L (3.5-5.1) Chloride Level 106 mmol/L (98-107) Carbon Dioxide Level 22 mmol/L (21-32) Anion Gap 14 (6-14) Blood Urea Nitrogen 30 mg/dL (8-26) H Creatinine 1.9 mg/dL (0.7-1.3) H Estimated GFR (Cockcroft-Gault) 35.2 BUN/Creatinine Ratio 16 (6-20) Glucose Level 84 mg/dL (70-99) Calcium Level 9.1 mg/dL (8.5-10.1) Total Bilirubin 0.2 mg/dL (0.2-1.0) Aspartate Amino Transferase (AST) 57 U/L (15-37) H Alanine Aminotransferase (ALT) 24 U/L (16-63) Alkaline Phosphatase 291 U/L (46-116) H Lactate Dehydrogenase 3080 U/L (85-227) H Total Protein 6.5 g/dL (6.4-8.2) Albumin 2.4 g/dL (3.4-5.0) L Albumin/Globulin Ratio 0.6 (1.0-1.7) L Current Medications: Meds: Current Medications Acetaminophen (Tylenol) 650 mg PRN Q6HRS PRN PO PAIN / TEMP; Start 09/06/17 at 15:45 Multi-Ingredient Ointment (Analgesic [place]) 1 paulino PRN QID PRN TP MUSCLE PAIN; Start 09/06/17 at 15:45 Al Hydroxide/Mg Hydroxide (Mylanta Plus Xs) 15 ml PRN AFTMEALHC PRN PO DYSPEPSIA; Start 09/06/17 at 15:45 Magnesium Hydroxide (Milk Of Magnesia) 2,400 mg PRN QHS PRN PO CONSTIPATION; Start 09/06/17 at 15:45 Furosemide (Lasix) 20 mg DAILY PO Last administered on 09/07/17at 08:40; Start at 09:00; Stop 09/07/17 at 18:21; Status DC Pantoprazole Sodium (Protonix) 40 mg BID PO ; Start 09/06/17 at 21:00; Stop at 21:00; Status DC Quetiapine Fumarate (SEROquel) 50 mg BID PO Last administered on 09/11/17 19:27 ; Start 09/06/17 at 21:00 Senna/Docusate Sodium (Senna Plus) 1 tab BID PO Last administered on 09/11/17at 19:27; Start 09/06/17 at 21:00 Divalproex Sodium (Depakote) 500 mg BID PO Last administered on 09/07/17at 08:36 ; Start 09/06/17 at 21:00; Stop 09/07/17 at 18:28; Status DC Lisinopril (Prinivil) 40 mg DAILY PO Last administered on 09/07/17at 08:40; Start 09/07/17 at 09:00; Stop 09/07/17 at 18:21; Status DC Potassium Chloride (Klor-Con) 20 meq DAILYWBKFT PO Last administered on at 08:40; Start 09/07/17 at 08:00; Stop 09/07/17 at 18:21; Status DC Venlafaxine HCl (Effexor Xr) 75 mg DAILY PO Last administered on 09/11/17at 08:24 ; Start 09/07/17 at 09:00; Stop 09/11/17 at 18:22; Status DC Quetiapine Fumarate (SEROquel) 12.5 mg NOON PO Last administered on 09/10/17at 11 :55; Start 09/07/17 at 12:00; Stop 09/10/17 at 18:18; Status DC Vitamin D (Vitamin D3) 50,000 unit WEEKLY PO Last administered on 09/07/17at 19: 43; Start 09/07/17 at 19:00 Divalproex Sodium (Depakote Sprinkles) 500 mg BID PO Last administered on at 19:27; Start 09/07/17 at 21:00 Vitamin D (Vitamin D3) 50,000 unit WEEKLY PO ; Start 09/10/17 at 16:00; Stop 09/10 at 16:00; Status DC Levothyroxine Sodium (Synthroid) 25 mcg DAILY07 PO Last administered on at 06:24; Start 09/11/17 at 07:00 Quetiapine Fumarate (SEROquel) 25 mg NOON PO Last administered on 09/11/17at 12: 05; Start 09/11/17 at 12:00 Duloxetine HCl (Cymbalta) 30 mg DAILY PO ; Start 09/12/17 at 09:00; Stop at 08:50 Duloxetine HCl (Cymbalta) 30 mg DAILY PO ; Start 09/14/17 at 09:00; Stop at 09:00; Status DC Buspirone HCl (Buspar) 5 mg BID@0900,1300 PO ; Start 09/12/17 at 09:00 Olanzapine (ZyPREXA ZYDIS) 1.25 mg PRN Q2HR PRN PO PSYCHOSIS; Start 09/11/17 at 18:30 Duloxetine HCl (Cymbalta) 20 mg DAILY PO ; Start 09/14/17 at 09:00; Stop at 09:00; Status DC Duloxetine HCl (Cymbalta) 60 mg DAILY PO ; Start 09/14/17 at 09:00 Active Scripts Active Reported Seroquel (Quetiapine Fumarate) 50 Mg Tablet 50 Mg PO BID Senna Plus Tablet (Sennosides/Docusate Sodium) 1 Each Tablet 1 Each PO BID Protonix (Pantoprazole Sodium) 40 Mg Tablet.dr 40 Mg PO BID Potassium Chloride 10 Meq Tablet.er 20 Meq PO DAILY Lisinopril 40 Mg Tablet 40 Mg PO DAILY Lasix (Furosemide) 20 Mg Tablet 20 Mg PO DAILY Effexor Xr (Venlafaxine Hcl) 75 Mg Cap.er.24h 75 Mg PO DAILY Depakote (Divalproex Sodium) 500 Mg Tablet.dr 500 Mg PO BID I have reviewed the current psychotropics carefully including drug interactions. Risk benefit ratio favors no change other than as noted in my dictated progress note. Diagnosis: Problems: (1) Agitation (2) Anxiety disorder (3) Impulse control disorder (4) Dementia, vascular, with depression (5) Dementia, vascular, with delusions (6) Dementia in Alzheimer's disease with depression (7) Dementia in Alzheimer's disease with delusions SIVA HUA MD Sep 11, 2017 22:00
[2017-09-12] MEDS: LEVOTHYROXINE 25 MCG TABLET. PO SCH (05:24)
[2017-09-12 06:00] VITALS: BP 127/85
[2017-09-12 06:38] LABS: BASO % 0 % (0-3); EOS # 0.1 x10^3/uL (0.0-0.7); EOS % 1 % (0-3); HEMATOCRIT 35.8 % (39.0-53.0); HEMOGLOBIN 11.8 g/dL (13.0-17.5); LYMPH # 3.9 x10^3/uL (1.0-4.8); LYMPH % 62 % (24-48); MEAN CORPUSCULAR HEMOGLOBIN 31 pg (25-35); MEAN CORPUSCULAR HGB CONC 33 g/dL (31-37); MEAN CORPUSCULAR VOLUME 94 fL (79-100); MONO # 1.3 x10^3/uL (0.0-1.1); MONO % 21 % (0-9); NEUT % 17 % (31-73); PLATELET COUNT 40 x10^3/uL (140-400); RED BLOOD COUNT 3.82 x10^6/uL (4.30-5.70); RED CELL DISTRIBUTION WIDTH 16.4 % (11.5-14.5)
[2017-09-12] MEDS: SENNOSIDES/DOCUSATE 8.6/50MG TABLET. PO SCH ×2 (08:20→19:37)
[2017-09-12] MEDS: DIVALPROEX 125 MG CAP.SPRINK PO SCH ×2 (08:20→19:37)
[2017-09-12] MEDS: QUEtiapine 50 MG TABLET. PO SCH ×2 (08:20→19:37)
[2017-09-12] MEDS: busPIRone 5 MG TABLET. PO SCH ×2 (08:22→13:12)
[2017-09-12] MEDS: DULoxetine HCL 30 MG CAPSULE.DR PO SCH (08:22)
[2017-09-12 09:04] LABS: % BANDS 4 % (0-9); % BLASTS 18 % (0-0); % EOS 1 % (0-5); % LYMPHS 58 % (24-48); % METAS 2 % (0-0); % MYELOS 1 % (0-0); % PROS 1 % (0-0); % SEGS 7 % (35-66); NUCLEATED RBC 15; PLT ESTIMATE DECREASED (ADEQUATE)
[2017-09-12 09:14] LABS: ANISOCYTOSIS SLIGHT; MICROCYTOSIS SLIGHT; OVALOCYTES OCC; POLYCHROMASIA MOD; TEAR DROP CELLS OCC
[2017-09-12] MEDS: QUEtiapine 25 MG TABLET. PO SCH (12:22)
--- NOTE | 2017-09-12 13:25 | PN ---
DATE: 09/11/2017 This is a late entry for 09/11/2017 covers elements not covered in the initial note for 09/11/2017. Met with the patient in the evening of 09/11/2017. Per nursing report, the patient is being quite labile in his mood and at times, yelling, cursing at staff, quite abrasive and verbally aggressive. REVIEW OF SYSTEMS: Hard of hearing, impaired ambulation and wheelchair. No CV, , pulmonary, eye system symptoms on review. MENTAL STATUS EXAM: Oriented to himself and situation. Speech has some latency, coherent. Abstraction fair, computation impaired, language function intact, attention span short. Mood and affect remains somewhat labile. LABORATORY DATA: Reviewed. IMPRESSION: Major depressive disorder with psychotic features; major neurocognitive disorder, vascular with depression, delusion. PLAN: Change Effexor to Cymbalta 30 mg a day, increasing to 60 mg a day in 2 days and start BuSpar 5 mg twice a day. Continue rest of the psychotropics unchanged and Zyprexa was added p.r.n. for agitation, mood lability, psychosis. MAN Aleksey HUA MD DR: JENY/charlette JOB#: [id number] / [id number]
[2017-09-12 15:39] VITALS: BP 115/68
--- NOTE | 2017-09-12 20:50 | PDOC ---
Exam Note: Lawrence Note: Please also refer to the separate dictated note~for this date of service dictated separately.~Patient seen individually. Discussed the patient with Nursing staff reviewed the chart.~Reviewed interim history and current functioning. Reviewed vital signs,~Labs/ Radiology~and current medications noted below. Continue current treatment with the changes noted in the dictated addendum note Assessment: Vital Signs: Vital Signs Date Time Temp Pulse Resp B/P (MAP) Pulse Ox O2 Delivery O2 Flow Rate FiO2 09/12/17 15:39 96.8 78 20 115/68 (84) 96 09/06/17 15:07 Room Air I&O Intake and Output 09/12/17 07:00 Intake Total 1120 ml Balance 1120 ml Intake Oral 1120 ml # Voids 2 # Bowel Movements 1 Labs: Laboratory Tests Test 09/12/17 06:08 White Blood Count 6.3 x10^3/uL (4.0-11.0) Red Blood Count 3.82 x10^6/uL (4.30-5.70) L Hemoglobin 11.8 g/dL (13.0-17.5) L Hematocrit 35.8 % (39.0-53.0) L Mean Corpuscular Volume 94 fL (79-100) Mean Corpuscular Hemoglobin 31 pg (25-35) Mean Corpuscular Hemoglobin Concent 33 g/dL (31-37) Red Cell Distribution Width 16.4 % (11.5-14.5) H Platelet Count 40 x10^3/uL (140-400) L Neutrophils (%) (Auto) 17 % (31-73) L Lymphocytes (%) (Auto) 62 % (24-48) H Monocytes (%) (Auto) 21 % (0-9) H Eosinophils (%) (Auto) 1 % (0-3) Basophils (%) (Auto) 0 % (0-3) Neutrophils # (Auto) 1.0 x10^3uL (1.8-7.7) L Lymphocytes # (Auto) 3.9 x10^3/uL (1.0-4.8) Monocytes # (Auto) 1.3 x10^3/uL (0.0-1.1) H Eosinophils # (Auto) 0.1 x10^3/uL (0.0-0.7) Basophils # (Auto) 0.0 x10^3/uL (0.0-0.2) Segmented Neutrophils % 7 % (35-66) L Band Neutrophils % 4 % (0-9) Lymphocytes % 58 % (24-48) H Eosinophils % 1 % (0-5) Metamyelocytes % 2 % (0-0) H Myelocytes % 1 % (0-0) H Promyelocytes % 1 % (0-0) H Blast Cells % (Manual) 18 % (0-0) H Nucleated Red Blood Cells 15 Platelet Estimate Decreased (ADEQUATE) Polychromasia Mod Anisocytosis Slight Microcytosis Slight Tear Drop Cells Occ Ovalocytes Occ Current Medications: Meds: Current Medications Acetaminophen (Tylenol) 650 mg PRN Q6HRS PRN PO PAIN / TEMP; Start 09/06/17 at 15:45 Multi-Ingredient Ointment (Analgesic [place]) 1 paulino PRN QID PRN TP MUSCLE PAIN; Start 09/06/17 at 15:45 Al Hydroxide/Mg Hydroxide (Mylanta Plus Xs) 15 ml PRN AFTMEALHC PRN PO DYSPEPSIA; Start 09/06/17 at 15:45 Magnesium Hydroxide (Milk Of Magnesia) 2,400 mg PRN QHS PRN PO CONSTIPATION; Start 09/06/17 at 15:45 Furosemide (Lasix) 20 mg DAILY PO Last administered on 09/07/17at 08:40; Start at 09:00; Stop 09/07/17 at 18:21; Status DC Pantoprazole Sodium (Protonix) 40 mg BID PO ; Start 09/06/17 at 21:00; Stop at 21:00; Status DC Quetiapine Fumarate (SEROquel) 50 mg BID PO Last administered on 09/12/17at 19: 37; Start 09/06/17 at 21:00 Senna/Docusate Sodium (Senna Plus) 1 tab BID PO Last administered on 09/12/17at 19:37; Start 09/06/17 at 21:00 Divalproex Sodium (Depakote) 500 mg BID PO Last administered on 09/07/17at 08:36 ; Start 09/06/17 at 21:00; Stop 09/07/17 at 18:28; Status DC Lisinopril (Prinivil) 40 mg DAILY PO Last administered on 09/07/17at 08:40; Start 09/07/17 at 09:00; Stop 09/07/17 at 18:21; Status DC Potassium Chloride (Klor-Con) 20 meq DAILYWBKFT PO Last administered on at 08:40; Start 09/07/17 at 08:00; Stop 09/07/17 at 18:21; Status DC Venlafaxine HCl (Effexor Xr) 75 mg DAILY PO Last administered on 09/11/17at 08:24 ; Start 09/07/17 at 09:00; Stop 09/11/17 at 18:22; Status DC Quetiapine Fumarate (SEROquel) 12.5 mg NOON PO Last administered on 09/10/17at 11 :55; Start 09/07/17 at 12:00; Stop 09/10/17 at 18:18; Status DC Vitamin D (Vitamin D3) 50,000 unit WEEKLY PO Last administered on 09/07/17at 19: 43; Start 09/07/17 at 19:00 Divalproex Sodium (Depakote Sprinkles) 500 mg BID PO Last administered on at 19:37; Start 09/07/17 at 21:00 Vitamin D (Vitamin D3) 50,000 unit WEEKLY PO ; Start 09/10/17 at 16:00; Stop 09/10 at 16:00; Status DC Levothyroxine Sodium (Synthroid) 25 mcg DAILY07 PO Last administered on at 05:24; Start 09/11/17 at 07:00 Quetiapine Fumarate (SEROquel) 25 mg NOON PO Last administered on 09/12/17at 12: 22; Start 09/11/17 at 12:00 Duloxetine HCl (Cymbalta) 30 mg DAILY PO Last administered on 09/12/17at 08:22; Start 09/12/17 at 09:00; Stop 09/14/17 at 08:50 Duloxetine HCl (Cymbalta) 30 mg DAILY PO ; Start 09/14/17 at 09:00; Stop at 09:00; Status DC Buspirone HCl (Buspar) 5 mg BID@0900,1300 PO Last administered on 09/12/17at 13: 12; Start 09/12/17 at 09:00 Olanzapine (ZyPREXA ZYDIS) 1.25 mg PRN Q2HR PRN PO PSYCHOSIS; Start 09/11/17 at 18:30 Duloxetine HCl (Cymbalta) 20 mg DAILY PO ; Start 09/14/17 at 09:00; Stop at 09:00; Status DC Duloxetine HCl (Cymbalta) 60 mg DAILY PO ; Start 09/14/17 at 09:00 Active Scripts Active Reported Seroquel (Quetiapine Fumarate) 50 Mg Tablet 50 Mg PO BID Senna Plus Tablet (Sennosides/Docusate Sodium) 1 Each Tablet 1 Each PO BID Protonix (Pantoprazole Sodium) 40 Mg Tablet.dr 40 Mg PO BID Potassium Chloride 10 Meq Tablet.er 20 Meq PO DAILY Lisinopril 40 Mg Tablet 40 Mg PO DAILY Lasix (Furosemide) 20 Mg Tablet 20 Mg PO DAILY Effexor Xr (Venlafaxine Hcl) 75 Mg Cap.er.24h 75 Mg PO DAILY Depakote (Divalproex Sodium) 500 Mg Tablet.dr 500 Mg PO BID I have reviewed the current psychotropics carefully including drug interactions. Risk benefit ratio favors no change other than as noted in my dictated progress note. Diagnosis: Problems: (1) Agitation (2) Anxiety disorder (3) Impulse control disorder (4) Dementia, vascular, with depression (5) Dementia, vascular, with delusions (6) Dementia in Alzheimer's disease with depression (7) Dementia in Alzheimer's disease with delusions SIVA HUA MD Sep 12, 2017 20:49
[2017-09-13] MEDS: LEVOTHYROXINE 25 MCG TABLET. PO SCH (05:39)
[2017-09-13 06:31] VITALS: BP 145/80
[2017-09-13] MEDS: DIVALPROEX 125 MG CAP.SPRINK PO SCH ×2 (08:28→20:01)
[2017-09-13] MEDS: busPIRone 5 MG TABLET. PO SCH ×2 (08:28→12:19)
[2017-09-13] MEDS: SENNOSIDES/DOCUSATE 8.6/50MG TABLET. PO SCH ×2 (08:28→20:01)
[2017-09-13] MEDS: QUEtiapine 50 MG TABLET. PO SCH ×2 (08:28→20:01)
[2017-09-13] MEDS: DULoxetine HCL 30 MG CAPSULE.DR PO SCH (08:28)
[2017-09-13] MEDS: QUEtiapine 25 MG TABLET. PO SCH (12:19)
[2017-09-13 16:19] VITALS: BP 121/75
--- NOTE | 2017-09-13 20:42 | PN ---
DATE: 09/12/2017 This late entry 09/12/2017 covers elements not covered in my initial note 09/12/2017. Met with the patient evening of 09/12/2017. SUBJECTIVE: The patient slept 8 hours previous evening. He has had a better day, but still get somewhat labile at times. He has had some swallowing problems. We will do a swallow study since he has been coughing after fluid intake. REVIEW OF SYSTEMS: Ambulation impaired, in wheelchair, hard of hearing, difficulty swallowing. No CV, , pulmonary, eye system symptoms on review. MENTAL STATUS EXAM: Oriented to himself and situation. Speech has some latency, often responses monosyllabic. Abstraction fair, computation impaired, language function intact, attention span short. Mood and affect somewhat anxious, labile at times. LABORATORY DATA: Reviewed. IMPRESSION: Major depressive disorder, major neurocognitive disorder, Alzheimer, vascular with delusion, depression. PLAN: Continue psychotropics mentioned in my initial note. Adjust further as clinically indicated. MAN Aleksey HUA MD DR: JENY/charlette JOB#: [id number] / [id number]
--- NOTE | 2017-09-13 20:49 | PDOC ---
Exam Note: Lawrence Note: Please also refer to the separate dictated note~for this date of service dictated separately.~Patient seen individually. Discussed the patient with Nursing staff reviewed the chart.~Reviewed interim history and current functioning. Reviewed vital signs,~Labs/ Radiology~and current medications noted below. Continue current treatment with the changes noted in the dictated addendum note Assessment: Vital Signs: Vital Signs Date Time Temp Pulse Resp B/P (MAP) Pulse Ox O2 Delivery O2 Flow Rate FiO2 09/13/17 16:19 97.2 74 18 121/75 (90) 95 09/13/17 06:31 Room Air I&O Intake and Output 09/13/17 07:00 Intake Total 1480 ml Balance 1480 ml Intake Oral 1480 ml # Voids 2 Current Medications: Meds: Current Medications Acetaminophen (Tylenol) 650 mg PRN Q6HRS PRN PO PAIN / TEMP; Start 09/06/17 at 15:45 Multi-Ingredient Ointment (Analgesic [place]) 1 paulino PRN QID PRN TP MUSCLE PAIN; Start 09/06/17 at 15:45 Al Hydroxide/Mg Hydroxide (Mylanta Plus Xs) 15 ml PRN AFTMEALHC PRN PO DYSPEPSIA; Start 09/06/17 at 15:45 Magnesium Hydroxide (Milk Of Magnesia) 2,400 mg PRN QHS PRN PO CONSTIPATION; Start 09/06/17 at 15:45 Furosemide (Lasix) 20 mg DAILY PO Last administered on 09/07/17at 08:40; Start at 09:00; Stop 09/07/17 at 18:21; Status DC Pantoprazole Sodium (Protonix) 40 mg BID PO ; Start 09/06/17 at 21:00; Stop at 21:00; Status DC Quetiapine Fumarate (SEROquel) 50 mg BID PO Last administered on 09/13/17at 20: 01; Start 09/06/17 at 21:00 Senna/Docusate Sodium (Senna Plus) 1 tab BID PO Last administered on 09/13/17at 20:01; Start 09/06/17 at 21:00 Divalproex Sodium (Depakote) 500 mg BID PO Last administered on 09/07/17at 08:36 ; Start 09/06/17 at 21:00; Stop 09/07/17 at 18:28; Status DC Lisinopril (Prinivil) 40 mg DAILY PO Last administered on 09/07/17at 08:40; Start 09/07/17 at 09:00; Stop 09/07/17 at 18:21; Status DC Potassium Chloride (Klor-Con) 20 meq DAILYWBKFT PO Last administered on at 08:40; Start 09/07/17 at 08:00; Stop 09/07/17 at 18:21; Status DC Venlafaxine HCl (Effexor Xr) 75 mg DAILY PO Last administered on 09/11/17at 08:24 ; Start 09/07/17 at 09:00; Stop 09/11/17 at 18:22; Status DC Quetiapine Fumarate (SEROquel) 12.5 mg NOON PO Last administered on 09/10/17at 11 :55; Start 09/07/17 at 12:00; Stop 09/10/17 at 18:18; Status DC Vitamin D (Vitamin D3) 50,000 unit WEEKLY PO Last administered on 09/07/17at 19: 43; Start 09/07/17 at 19:00 Divalproex Sodium (Depakote Sprinkles) 500 mg BID PO Last administered on at 20:01; Start 09/07/17 at 21:00 Vitamin D (Vitamin D3) 50,000 unit WEEKLY PO ; Start 09/10/17 at 16:00; Stop 09/10 at 16:00; Status DC Levothyroxine Sodium (Synthroid) 25 mcg DAILY07 PO Last administered on at 05:39; Start 09/11/17 at 07:00 Quetiapine Fumarate (SEROquel) 25 mg NOON PO Last administered on 09/13/17at 12: 19; Start 09/11/17 at 12:00; Stop 09/13/17 at 18:10; Status DC Duloxetine HCl (Cymbalta) 30 mg DAILY PO Last administered on 09/13/17at 08:28; Start 09/12/17 at 09:00; Stop 09/14/17 at 08:50 Duloxetine HCl (Cymbalta) 30 mg DAILY PO ; Start 09/14/17 at 09:00; Stop at 09:00; Status DC Buspirone HCl (Buspar) 5 mg BID@0900,1300 PO Last administered on 09/13/17at 12: 19; Start 09/12/17 at 09:00 Olanzapine (ZyPREXA ZYDIS) 1.25 mg PRN Q2HR PRN PO PSYCHOSIS; Start 09/11/17 at 18:30 Duloxetine HCl (Cymbalta) 20 mg DAILY PO ; Start 09/14/17 at 09:00; Stop at 09:00; Status DC Duloxetine HCl (Cymbalta) 60 mg DAILY PO ; Start 09/14/17 at 09:00 Quetiapine Fumarate (SEROquel) 50 mg NOON PO ; Start 09/14/17 at 12:00 Active Scripts Active Reported Seroquel (Quetiapine Fumarate) 50 Mg Tablet 50 Mg PO BID Senna Plus Tablet (Sennosides/Docusate Sodium) 1 Each Tablet 1 Each PO BID Protonix (Pantoprazole Sodium) 40 Mg Tablet.dr 40 Mg PO BID Potassium Chloride 10 Meq Tablet.er 20 Meq PO DAILY Lisinopril 40 Mg Tablet 40 Mg PO DAILY Lasix (Furosemide) 20 Mg Tablet 20 Mg PO DAILY Effexor Xr (Venlafaxine Hcl) 75 Mg Cap.er.24h 75 Mg PO DAILY Depakote (Divalproex Sodium) 500 Mg Tablet.dr 500 Mg PO BID I have reviewed the current psychotropics carefully including drug interactions. Risk benefit ratio favors no change other than as noted in my dictated progress note. Diagnosis: Problems: (1) Agitation (2) Anxiety disorder (3) Impulse control disorder (4) Dementia, vascular, with depression (5) Dementia, vascular, with delusions (6) Dementia in Alzheimer's disease with depression (7) Dementia in Alzheimer's disease with delusions SIVA HUA MD Sep 13, 2017 20:49
[2017-09-14] MEDS: LEVOTHYROXINE 25 MCG TABLET. PO SCH (06:03)
[2017-09-14 06:06] VITALS: BP 117/79
[2017-09-14] MEDS ORDERED: DULoxetine HCL 30 MG CAPSULE.DR PO SCH (09:00)
[2017-09-14] MEDS ORDERED: DULoxetine HCL 20 MG CAPSULE.DR PO SCH (09:00)
[2017-09-14] MEDS: busPIRone 5 MG TABLET. PO SCH ×4 (09:33→19:56)
[2017-09-14] MEDS: SENNOSIDES/DOCUSATE 8.6/50MG TABLET. PO SCH ×2 (09:33→19:56)
[2017-09-14] MEDS: QUEtiapine 50 MG TABLET. PO SCH ×3 (09:34→19:56)
[2017-09-14] MEDS: DIVALPROEX 125 MG CAP.SPRINK PO SCH ×2 (09:34→19:57)
[2017-09-14] MEDS: CHOLECALCIFEROL (VITAMIN D3) 50,000 UNIT CAPSULE PO SCH (09:37)
[2017-09-14] MEDS: DULoxetine HCL 60 MG CAPSULE.DR PO SCH (09:37)
[2017-09-14 15:35] VITALS: BP 120/70
--- NOTE | 2017-09-14 20:51 | PDOC ---
Exam Note: [place] Note: Please also refer to the separate dictated note~for this date of service dictated separately.~Patient seen individually. Discussed the patient with Nursing staff reviewed the chart.~Reviewed interim history and current functioning. Reviewed vital signs,~Labs/ Radiology~and current medications noted below. Continue current treatment with the changes noted in the dictated addendum note Assessment: Vital Signs: Vital Signs Date Time Temp Pulse Resp B/P (MAP) Pulse Ox O2 Delivery O2 Flow Rate FiO2 09/14/17 15:35 97.8 96 18 120/70 (87) 93 09/13/17 06:31 Room Air I&O Intake and Output 09/14/17 07:00 Intake Total 1680 ml Balance 1680 ml Intake Oral 1680 ml # Voids 1 # Bowel Movements 1 Current Medications: Meds: Current Medications Acetaminophen (Tylenol) 650 mg PRN Q6HRS PRN PO PAIN / TEMP; Start 09/06/17 at 15:45 Multi-Ingredient Ointment (Analgesic [place]) 1 paulino PRN QID PRN TP MUSCLE PAIN; Start 09/06/17 at 15:45 Al Hydroxide/Mg Hydroxide (Mylanta Plus Xs) 15 ml PRN AFTMEALHC PRN PO DYSPEPSIA; Start 09/06/17 at 15:45 Magnesium Hydroxide (Milk Of Magnesia) 2,400 mg PRN QHS PRN PO CONSTIPATION; Start 09/06/17 at 15:45 Furosemide (Lasix) 20 mg DAILY PO Last administered on 09/07/17at 08:40; Start at 09:00; Stop 09/07/17 at 18:21; Status DC Pantoprazole Sodium (Protonix) 40 mg BID PO ; Start 09/06/17 at 21:00; Stop at 21:00; Status DC Quetiapine Fumarate (SEROquel) 50 mg BID PO Last administered on 09/14/17at 19: 56; Start 09/06/17 at 21:00 Senna/Docusate Sodium (Senna Plus) 1 tab BID PO Last administered on 09/14/17at 19:56; Start 09/06/17 at 21:00 Divalproex Sodium (Depakote) 500 mg BID PO Last administered on 09/07/17at 08:36 ; Start 09/06/17 at 21:00; Stop 09/07/17 at 18:28; Status DC Lisinopril (Prinivil) 40 mg DAILY PO Last administered on 09/07/17at 08:40; Start 09/07/17 at 09:00; Stop 09/07/17 at 18:21; Status DC Potassium Chloride (Klor-Con) 20 meq DAILYWBKFT PO Last administered on at 08:40; Start 09/07/17 at 08:00; Stop 09/07/17 at 18:21; Status DC Venlafaxine HCl (Effexor Xr) 75 mg DAILY PO Last administered on 09/11/17at 08:24 ; Start 09/07/17 at 09:00; Stop 09/11/17 at 18:22; Status DC Quetiapine Fumarate (SEROquel) 12.5 mg NOON PO Last administered on 09/10/17at 11 :55; Start 09/07/17 at 12:00; Stop 09/10/17 at 18:18; Status DC Vitamin D (Vitamin D3) 50,000 unit WEEKLY PO Last administered on 09/14/17at 09: 37; Start 09/07/17 at 19:00 Divalproex Sodium (Depakote Sprinkles) 500 mg BID PO Last administered on at 19:57; Start 09/07/17 at 21:00 Vitamin D (Vitamin D3) 50,000 unit WEEKLY PO ; Start 09/10/17 at 16:00; Stop 09/10 at 16:00; Status DC Levothyroxine Sodium (Synthroid) 25 mcg DAILY07 PO Last administered on at 06:03; Start 09/11/17 at 07:00 Quetiapine Fumarate (SEROquel) 25 mg NOON PO Last administered on 09/13/17at 12: 19; Start 09/11/17 at 12:00; Stop 09/13/17 at 18:10; Status DC Duloxetine HCl (Cymbalta) 30 mg DAILY PO Last administered on 09/13/17at 08:28; Start 09/12/17 at 09:00; Stop 09/14/17 at 08:51; Status DC Duloxetine HCl (Cymbalta) 30 mg DAILY PO ; Start 09/14/17 at 09:00; Stop at 09:00; Status DC Buspirone HCl (Buspar) 5 mg BID@0900,1300 PO Last administered on 09/14/17at 09: 33; Start 09/12/17 at 09:00; Stop 09/14/17 at 10:37; Status DC Olanzapine (ZyPREXA ZYDIS) 1.25 mg PRN Q2HR PRN PO PSYCHOSIS Last administered on 09/14/17at 09:57; Start 09/11/17 at 18:30 Duloxetine HCl (Cymbalta) 20 mg DAILY PO ; Start 09/14/17 at 09:00; Stop at 09:00; Status DC Duloxetine HCl (Cymbalta) 60 mg DAILY PO Last administered on 09/14/17at 09:37; Start 09/14/17 at 09:00 Quetiapine Fumarate (SEROquel) 50 mg NOON PO Last administered on 09/14/17at 12: 20; Start 09/14/17 at 12:00 Buspirone HCl (Buspar) 5 mg [id number] PO Last administered on 09/14/17at 19:56; Start 09/14/17 at 13:00 Active Scripts Active Reported Seroquel (Quetiapine Fumarate) 50 Mg Tablet 50 Mg PO BID Senna Plus Tablet (Sennosides/Docusate Sodium) 1 Each Tablet 1 Each PO BID Protonix (Pantoprazole Sodium) 40 Mg Tablet.dr 40 Mg PO BID Potassium Chloride 10 Meq Tablet.er 20 Meq PO DAILY Lisinopril 40 Mg Tablet 40 Mg PO DAILY Lasix (Furosemide) 20 Mg Tablet 20 Mg PO DAILY Effexor Xr (Venlafaxine Hcl) 75 Mg Cap.er.24h 75 Mg PO DAILY Depakote (Divalproex Sodium) 500 Mg Tablet.dr 500 Mg PO BID I have reviewed the current psychotropics carefully including drug interactions. Risk benefit ratio favors no change other than as noted in my dictated progress note. Diagnosis: Problems: (1) Agitation (2) Anxiety disorder (3) Impulse control disorder (4) Dementia, vascular, with depression (5) Dementia, vascular, with delusions (6) Dementia in Alzheimer's disease with depression (7) Dementia in Alzheimer's disease with delusions SIVA HUA MD Sep 14, 2017 20:51
[2017-09-15] MEDS: LEVOTHYROXINE 25 MCG TABLET. PO SCH (06:04)
[2017-09-15 06:36] VITALS: BP 122/73
[2017-09-15] MEDS: DULoxetine HCL 60 MG CAPSULE.DR PO SCH (08:08)
[2017-09-15] MEDS: DIVALPROEX 125 MG CAP.SPRINK PO SCH (08:08)
[2017-09-15] MEDS: QUEtiapine 50 MG TABLET. PO SCH ×3 (08:08→19:21)
[2017-09-15] MEDS: busPIRone 5 MG TABLET. PO SCH ×4 (08:08→19:21)
[2017-09-15] MEDS: SENNOSIDES/DOCUSATE 8.6/50MG TABLET. PO SCH ×2 (08:08→19:21)
[2017-09-15 16:13] VITALS: BP 124/88
--- NOTE | 2017-09-15 20:46 | PDOC ---
Exam Note: Lawrence Note: Please also refer to the separate dictated note~for this date of service dictated separately.~Patient seen individually. Discussed the patient with Nursing staff reviewed the chart.~Reviewed interim history and current functioning. Reviewed vital signs,~Labs/ Radiology~and current medications noted below. Continue current treatment with the changes noted in the dictated addendum note Assessment: Vital Signs: Vital Signs Date Time Temp Pulse Resp B/P (MAP) Pulse Ox O2 Delivery O2 Flow Rate FiO2 09/15/17 16:13 97.7 84 16 124/88 (100) 92 09/13/17 06:31 Room Air I&O Intake and Output 09/15/17 07:00 Intake Total 580 ml Balance 580 ml Intake Oral 580 ml # Voids 1 Current Medications: Meds: Current Medications Acetaminophen (Tylenol) 650 mg PRN Q6HRS PRN PO PAIN / TEMP; Start 09/06/17 at 15:45 Multi-Ingredient Ointment (Analgesic [place]) 1 paulino PRN QID PRN TP MUSCLE PAIN; Start 09/06/17 at 15:45 Al Hydroxide/Mg Hydroxide (Mylanta Plus Xs) 15 ml PRN AFTMEALHC PRN PO DYSPEPSIA; Start 09/06/17 at 15:45 Magnesium Hydroxide (Milk Of Magnesia) 2,400 mg PRN QHS PRN PO CONSTIPATION; Start 09/06/17 at 15:45 Furosemide (Lasix) 20 mg DAILY PO Last administered on 09/07/17at 08:40; Start at 09:00; Stop 09/07/17 at 18:21; Status DC Pantoprazole Sodium (Protonix) 40 mg BID PO ; Start 09/06/17 at 21:00; Stop at 21:00; Status DC Quetiapine Fumarate (SEROquel) 50 mg BID PO Last administered on 09/15/17at 19: 21; Start 09/06/17 at 21:00 Senna/Docusate Sodium (Senna Plus) 1 tab BID PO Last administered on 09/15/17at 19:21; Start 09/06/17 at 21:00 Divalproex Sodium (Depakote) 500 mg BID PO Last administered on 09/07/17at 08:36 ; Start 09/06/17 at 21:00; Stop 09/07/17 at 18:28; Status DC Lisinopril (Prinivil) 40 mg DAILY PO Last administered on 09/07/17at 08:40; Start 09/07/17 at 09:00; Stop 09/07/17 at 18:21; Status DC Potassium Chloride (Klor-Con) 20 meq DAILYWBKFT PO Last administered on at 08:40; Start 09/07/17 at 08:00; Stop 09/07/17 at 18:21; Status DC Venlafaxine HCl (Effexor Xr) 75 mg DAILY PO Last administered on 09/11/17at 08:24 ; Start 09/07/17 at 09:00; Stop 09/11/17 at 18:22; Status DC Quetiapine Fumarate (SEROquel) 12.5 mg NOON PO Last administered on 09/10/17at 11 :55; Start 09/07/17 at 12:00; Stop 09/10/17 at 18:18; Status DC Vitamin D (Vitamin D3) 50,000 unit WEEKLY PO Last administered on 09/14/17at 09: 37; Start 09/07/17 at 19:00 Divalproex Sodium (Depakote Sprinkles) 500 mg BID PO Last administered on at 08:08; Start 09/07/17 at 21:00; Stop 09/15/17 at 18:49; Status DC Vitamin D (Vitamin D3) 50,000 unit WEEKLY PO ; Start 09/10/17 at 16:00; Stop 09/10 at 16:00; Status DC Levothyroxine Sodium (Synthroid) 25 mcg DAILY07 PO Last administered on at 06:04; Start 09/11/17 at 07:00 Quetiapine Fumarate (SEROquel) 25 mg NOON PO Last administered on 09/13/17at 12: 19; Start 09/11/17 at 12:00; Stop 09/13/17 at 18:10; Status DC Duloxetine HCl (Cymbalta) 30 mg DAILY PO Last administered on 09/13/17at 08:28; Start 09/12/17 at 09:00; Stop 09/14/17 at 08:51; Status DC Duloxetine HCl (Cymbalta) 30 mg DAILY PO ; Start 09/14/17 at 09:00; Stop at 09:00; Status DC Buspirone HCl (Buspar) 5 mg BID@0900,1300 PO Last administered on 09/14/17at 09: 33; Start 09/12/17 at 09:00; Stop 09/14/17 at 10:37; Status DC Olanzapine (ZyPREXA ZYDIS) 1.25 mg PRN Q2HR PRN PO PSYCHOSIS Last administered on 09/14/17at 09:57; Start 09/11/17 at 18:30 Duloxetine HCl (Cymbalta) 20 mg DAILY PO ; Start 09/14/17 at 09:00; Stop at 09:00; Status DC Duloxetine HCl (Cymbalta) 60 mg DAILY PO Last administered on 09/15/17at 08:08; Start 09/14/17 at 09:00 Quetiapine Fumarate (SEROquel) 50 mg NOON PO Last administered on 09/15/17at 12: 46; Start 09/14/17 at 12:00 Buspirone HCl (Buspar) 5 mg [id number] PO Last administered on 09/15/17at 19:21; Start 09/14/17 at 13:00 Active Scripts Active Reported Seroquel (Quetiapine Fumarate) 50 Mg Tablet 50 Mg PO BID Senna Plus Tablet (Sennosides/Docusate Sodium) 1 Each Tablet 1 Each PO BID Protonix (Pantoprazole Sodium) 40 Mg Tablet.dr 40 Mg PO BID Potassium Chloride 10 Meq Tablet.er 20 Meq PO DAILY Lisinopril 40 Mg Tablet 40 Mg PO DAILY Lasix (Furosemide) 20 Mg Tablet 20 Mg PO DAILY Effexor Xr (Venlafaxine Hcl) 75 Mg Cap.er.24h 75 Mg PO DAILY Depakote (Divalproex Sodium) 500 Mg Tablet.dr 500 Mg PO BID I have reviewed the current psychotropics carefully including drug interactions. Risk benefit ratio favors no change other than as noted in my dictated progress note. Diagnosis: Problems: (1) Agitation (2) Anxiety disorder (3) Impulse control disorder (4) Dementia, vascular, with depression (5) Dementia, vascular, with delusions (6) Dementia in Alzheimer's disease with depression (7) Dementia in Alzheimer's disease with delusions SIVA HUA MD Sep 15, 2017 20:46
--- NOTE | 2017-09-15 21:58 | PN ---
DATE: 09/13/2017 This is a late entry, 09/13/2017, covers the elements not covered in my initial note, 09/13/2017. SUBJECTIVE: I met with the patient evening of 09/13/2017. The patient was yelling, cursing previous evening, quite labile, refused medications. He had one outburst and on 09/13/2017, after lunch; then he had a nap, then worked with physical therapy and then did better in the evening. REVIEW OF SYSTEMS: Ambulation impaired, in wheelchair, hard of hearing. No CV, , pulmonary, eye system symptoms on review. MENTAL STATUS EXAM: Oriented to himself, situation at times. Speech has some latency, coherent, often responses monosyllabic. Abstraction fair, computation impaired, language function intact. Memory is impaired. Mood and affect remains labile. LABORATORY DATA: Reviewed. IMPRESSION: Schizoaffective disorder, bipolar type, mixed versus major neurocognitive disorder, Alzheimer, vascular with depression, delusion. PLAN: Increase the 12 noon Seroquel from 25 mg to 50 mg. Continue rest unchanged. Valproic acid level 71, therapeutic on Depakote Sprinkles 500 b.i.d. Cymbalta has been increased. Maintain BuSpar. MAN Aleksey HUA MD DR: JENY/charlette JOB#: [id number] / [id number]
[2017-09-16] MEDS: LEVOTHYROXINE 25 MCG TABLET. PO SCH (04:03)
--- NOTE | 2017-09-16 04:53 | PN ---
DATE: 09/14/2017 This is a late entry for 09/14, covers elements not covered in my initial note on 09/14. SUBJECTIVE: I met with the patient on the evening of 09/14 and staffed a treatment team meeting with the entire team on the morning of 09/14. The patient slept 7 hours the previous evening, remains anxious, did well previous night, but during the day, is agitated, cursing, labile. REVIEW OF SYSTEMS: Hard of hearing, impaired ambulation, in wheelchair. No CV, , pulmonary, eye, ENT system symptoms on review. MENTAL STATUS EXAMINATION: Oriented to himself and situation. Speech has some latency, often responses monosyllabic. Abstraction fair. Computation impaired. Language function intact. Attention span short. Mood and affect somewhat labile, less so than before. LABORATORY DATA: Reviewed. IMPRESSION: Major depressive disorder with psychotic features; major neurocognitive disorder, Alzheimer, vascular with delusion; depression. Rest unchanged. PLAN: Increase BuSpar from 5 mg twice a day to 5 mg 4 times a day. Rest unchanged from initial note. MAN Aleksey HUA MD DR: JENY/charlette JOB#: [id number] / [id number]
[2017-09-16 06:26] VITALS: BP 138/69
[2017-09-16] MEDS: QUEtiapine 50 MG TABLET. PO SCH ×3 (07:59→19:42)
[2017-09-16] MEDS: DULoxetine HCL 60 MG CAPSULE.DR PO SCH (07:59)
[2017-09-16] MEDS: SENNOSIDES/DOCUSATE 8.6/50MG TABLET. PO SCH ×2 (07:59→19:43)
[2017-09-16] MEDS: busPIRone 5 MG TABLET. PO SCH ×4 (07:59→19:42)
[2017-09-16 16:26] VITALS: BP 130/55
--- NOTE | 2017-09-16 19:43 | PDOC ---
Exam Note: [place] Note: Please also refer to the separate dictated note~for this date of service dictated separately.~Patient seen individually. Discussed the patient with Nursing staff reviewed the chart.~Reviewed interim history and current functioning. Reviewed vital signs,~Labs/ Radiology~and current medications noted below. Continue current treatment with the changes noted in the dictated addendum note Assessment: Vital Signs: Vital Signs Date Time Temp Pulse Resp B/P (MAP) Pulse Ox O2 Delivery O2 Flow Rate FiO2 09/16/17 16:26 97.4 81 16 130/55 (80) 94 Room Air I&O Intake and Output 09/16/17 07:00 Intake Total 720 ml Balance 720 ml Intake Oral 720 ml # Voids 1 Current Medications: Meds: Current Medications Acetaminophen (Tylenol) 650 mg PRN Q6HRS PRN PO PAIN / TEMP; Start 09/06/17 at 15:45 Multi-Ingredient Ointment (Analgesic [place]) 1 paulino PRN QID PRN TP MUSCLE PAIN; Start 09/06/17 at 15:45 Al Hydroxide/Mg Hydroxide (Mylanta Plus Xs) 15 ml PRN AFTMEALHC PRN PO DYSPEPSIA; Start 09/06/17 at 15:45 Magnesium Hydroxide (Milk Of Magnesia) 2,400 mg PRN QHS PRN PO CONSTIPATION; Start 09/06/17 at 15:45 Furosemide (Lasix) 20 mg DAILY PO Last administered on 09/07/17at 08:40; Start at 09:00; Stop 09/07/17 at 18:21; Status DC Pantoprazole Sodium (Protonix) 40 mg BID PO ; Start 09/06/17 at 21:00; Stop at 21:00; Status DC Quetiapine Fumarate (SEROquel) 50 mg BID PO Last administered on 09/16/17at 07: 59; Start 09/06/17 at 21:00 Senna/Docusate Sodium (Senna Plus) 1 tab BID PO Last administered on 09/16/17at 07:59; Start 09/06/17 at 21:00 Divalproex Sodium (Depakote) 500 mg BID PO Last administered on 09/07/17at 08:36 ; Start 09/06/17 at 21:00; Stop 09/07/17 at 18:28; Status DC Lisinopril (Prinivil) 40 mg DAILY PO Last administered on 09/07/17at 08:40; Start 09/07/17 at 09:00; Stop 09/07/17 at 18:21; Status DC Potassium Chloride (Klor-Con) 20 meq [id number] PO Last administered on at 08:40; Start 09/07/17 at 08:00; Stop 09/07/17 at 18:21; Status DC Venlafaxine HCl (Effexor Xr) 75 mg DAILY PO Last administered on 09/11/17at 08:24 ; Start 09/07/17 at 09:00; Stop 09/11/17 at 18:22; Status DC Quetiapine Fumarate (SEROquel) 12.5 mg NOON PO Last administered on 09/10/17at 11 :55; Start 09/07/17 at 12:00; Stop 09/10/17 at 18:18; Status DC Vitamin D (Vitamin D3) 50,000 unit WEEKLY PO Last administered on 09/14/17at 09: 37; Start 09/07/17 at 19:00 Divalproex Sodium (Depakote Sprinkles) 500 mg BID PO Last administered on at 08:08; Start 09/07/17 at 21:00; Stop 09/15/17 at 18:49; Status DC Vitamin D (Vitamin D3) 50,000 unit WEEKLY PO ; Start 09/10/17 at 16:00; Stop 09/10 at 16:00; Status DC Levothyroxine Sodium (Synthroid) 25 mcg DAILY07 PO Last administered on at 04:03; Start 09/11/17 at 07:00 Quetiapine Fumarate (SEROquel) 25 mg NOON PO Last administered on 09/13/17at 12: 19; Start 09/11/17 at 12:00; Stop 09/13/17 at 18:10; Status DC Duloxetine HCl (Cymbalta) 30 mg DAILY PO Last administered on 09/13/17at 08:28; Start 09/12/17 at 09:00; Stop 09/14/17 at 08:51; Status DC Duloxetine HCl (Cymbalta) 30 mg DAILY PO ; Start 09/14/17 at 09:00; Stop at 09:00; Status DC Buspirone HCl (Buspar) 5 mg BID@0900,1300 PO Last administered on 09/14/17at 09: 33; Start 09/12/17 at 09:00; Stop 09/14/17 at 10:37; Status DC Olanzapine (ZyPREXA ZYDIS) 1.25 mg PRN Q2HR PRN PO PSYCHOSIS Last administered on 09/14/17at 09:57; Start 09/11/17 at 18:30 Duloxetine HCl (Cymbalta) 20 mg DAILY PO ; Start 09/14/17 at 09:00; Stop at 09:00; Status DC Duloxetine HCl (Cymbalta) 60 mg DAILY PO Last administered on 09/16/17at 07:59; Start 09/14/17 at 09:00 Quetiapine Fumarate (SEROquel) 50 mg NOON PO Last administered on 09/16/17at 12: 51; Start 09/14/17 at 12:00 Buspirone HCl (Buspar) 5 mg [id number] PO Last administered on 09/16/17at 16:49; Start 09/14/17 at 13:00 Active Scripts Active Reported Seroquel (Quetiapine Fumarate) 50 Mg Tablet 50 Mg PO BID Senna Plus Tablet (Sennosides/Docusate Sodium) 1 Each Tablet 1 Each PO BID Protonix (Pantoprazole Sodium) 40 Mg Tablet.dr 40 Mg PO BID Potassium Chloride 10 Meq Tablet.er 20 Meq PO DAILY Lisinopril 40 Mg Tablet 40 Mg PO DAILY Lasix (Furosemide) 20 Mg Tablet 20 Mg PO DAILY Effexor Xr (Venlafaxine Hcl) 75 Mg Cap.er.24h 75 Mg PO DAILY Depakote (Divalproex Sodium) 500 Mg Tablet.dr 500 Mg PO BID I have reviewed the current psychotropics carefully including drug interactions. Risk benefit ratio favors no change other than as noted in my dictated progress note. Diagnosis: Problems: (1) Agitation (2) Anxiety disorder (3) Impulse control disorder (4) Dementia, vascular, with depression (5) Dementia, vascular, with delusions (6) Dementia in Alzheimer's disease with depression (7) Dementia in Alzheimer's disease with delusions SIVA HUA MD Sep 16, 2017 19:43
[2017-09-16] MEDS: ACETAMINOPHEN 325 MG TABLET PO PRN (19:45)
[2017-09-17] MEDS: LEVOTHYROXINE 25 MCG TABLET. PO SCH (05:43)
[2017-09-17 06:12] VITALS: BP 158/69
[2017-09-17] MEDS: SENNOSIDES/DOCUSATE 8.6/50MG TABLET. PO SCH ×2 (08:56→19:32)
[2017-09-17] MEDS: busPIRone 5 MG TABLET. PO SCH ×4 (08:56→19:32)
[2017-09-17] MEDS: DULoxetine HCL 60 MG CAPSULE.DR PO SCH (08:56)
[2017-09-17] MEDS: QUEtiapine 50 MG TABLET. PO SCH ×3 (08:56→19:32)
[2017-09-17 10:49] LABS: BASO % 0 % (0-3); EOS % 1 % (0-3); HEMOGLOBIN 12.4 g/dL (13.0-17.5); LYMPH # 3.7 x10^3/uL (1.0-4.8); LYMPH % 70 % (24-48); MEAN CORPUSCULAR HEMOGLOBIN 32 pg (25-35); MEAN CORPUSCULAR HGB CONC 34 g/dL (31-37); MEAN CORPUSCULAR VOLUME 94 fL (79-100); MONO # 0.5 x10^3/uL (0.0-1.1); MONO % 9 % (0-9); NEUT # 1.1 x10^3uL (1.8-7.7); NEUT % 20 % (31-73); PLATELET COUNT 38 x10^3/uL (140-400); RED BLOOD COUNT 3.92 x10^6/uL (4.30-5.70); RED CELL DISTRIBUTION WIDTH 16.5 % (11.5-14.5)
[2017-09-17 11:34] LABS: % EOS 1 % (0-5); % LYMPHS 76 % (24-48); % MONOS 2 % (0-10); % OTHERS 11 % (0-0); % SEGS 9 % (35-66); NUCLEATED RBC 24
[2017-09-17 11:37] LABS: PLT ESTIMATE DECREASED (ADEQUATE); POLYCHROMASIA SLIGHT
[2017-09-17 16:46] VITALS: BP 131/80
[2017-09-17] MEDS: ACETAMINOPHEN 325 MG TABLET PO PRN (19:34)
--- NOTE | 2017-09-17 22:09 | PDOC ---
Exam Note: [place] Note: Please also refer to the separate dictated note~for this date of service dictated separately.~Patient seen individually. Discussed the patient with Nursing staff reviewed the chart.~Reviewed interim history and current functioning. Reviewed vital signs,~Labs/ Radiology~and current medications noted below. Continue current treatment with the changes noted in the dictated addendum note Assessment: Vital Signs: Vital Signs Date Time Temp Pulse Resp B/P (MAP) Pulse Ox O2 Delivery O2 Flow Rate FiO2 09/17/17 16:46 98.7 100 21 131/80 (97) 96 09/17/17 06:12 Room Air I&O Intake and Output 09/17/17 07:00 Intake Total 1800 ml Balance 1800 ml Intake Oral 1800 ml # Voids 1 Labs: Laboratory Tests Test 09/17/17 10:17 White Blood Count 5.3 x10^3/uL (4.0-11.0) Red Blood Count 3.92 x10^6/uL (4.30-5.70) L Hemoglobin 12.4 g/dL (13.0-17.5) L Hematocrit 37.0 % (39.0-53.0) L Mean Corpuscular Volume 94 fL (79-100) Mean Corpuscular Hemoglobin 32 pg (25-35) Mean Corpuscular Hemoglobin Concent 34 g/dL (31-37) Red Cell Distribution Width 16.5 % (11.5-14.5) H Platelet Count 38 x10^3/uL (140-400) L Neutrophils (%) (Auto) 20 % (31-73) L Lymphocytes (%) (Auto) 70 % (24-48) H Monocytes (%) (Auto) 9 % (0-9) Eosinophils (%) (Auto) 1 % (0-3) Basophils (%) (Auto) 0 % (0-3) Neutrophils # (Auto) 1.1 x10^3uL (1.8-7.7) L Lymphocytes # (Auto) 3.7 x10^3/uL (1.0-4.8) Monocytes # (Auto) 0.5 x10^3/uL (0.0-1.1) Eosinophils # (Auto) 0.0 x10^3/uL (0.0-0.7) Basophils # (Auto) 0.0 x10^3/uL (0.0-0.2) Segmented Neutrophils % 9 % (35-66) L Lymphocytes % 76 % (24-48) H Monocytes % 2 % (0-10) Eosinophils % 1 % (0-5) Myelocytes % % (0-0) Other Cells % 11 % (0-0) H Nucleated Red Blood Cells 24 Platelet Estimate Decreased (ADEQUATE) Large Platelets Occ Giant Platelets Occ Polychromasia Slight Current Medications: Meds: Current Medications Acetaminophen (Tylenol) 650 mg PRN Q6HRS PRN PO PAIN / TEMP Last administered on 09/17/17at 19:34; Start 09/06/17 at 15:45 Multi-Ingredient Ointment (Analgesic [place]) 1 paulino PRN QID PRN TP MUSCLE PAIN; Start 09/06/17 at 15:45 Al Hydroxide/Mg Hydroxide (Mylanta Plus Xs) 15 ml PRN AFTMEALHC PRN PO DYSPEPSIA; Start 09/06/17 at 15:45 Magnesium Hydroxide (Milk Of Magnesia) 2,400 mg PRN QHS PRN PO CONSTIPATION Last administered on 09/17/17at 16:57; Start 09/06/17 at 15:45 Furosemide (Lasix) 20 mg DAILY PO Last administered on 09/07/17 08:40; Start at 09:00; Stop 09/07/17 at 18:21; Status DC Pantoprazole Sodium (Protonix) 40 mg BID PO ; Start 09/06/17 at 21:00; Stop at 21:00; Status DC Quetiapine Fumarate (SEROquel) 50 mg BID PO Last administered on 09/17/17at 19: 32; Start 09/06/17 at 21:00 Senna/Docusate Sodium (Senna Plus) 1 tab BID PO Last administered on 09/17/17 19:32; Start 09/06/17 at 21:00 Divalproex Sodium (Depakote) 500 mg BID PO Last administered on 09/07/17 08:36 ; Start 09/06/17 at 21:00; Stop 09/07/17 at 18:28; Status DC Lisinopril (Prinivil) 40 mg DAILY PO Last administered on 09/07/17at 08:40; Start 09/07/17 at 09:00; Stop 09/07/17 at 18:21; Status DC Potassium Chloride (Klor-Con) 20 meq DAILYWBKFT PO Last administered on at 08:40; Start 09/07/17 at 08:00; Stop 09/07/17 at 18:21; Status DC Venlafaxine HCl (Effexor Xr) 75 mg DAILY PO Last administered on 09/11/17at 08:24 ; Start 09/07/17 at 09:00; Stop 09/11/17 at 18:22; Status DC Quetiapine Fumarate (SEROquel) 12.5 mg NOON PO Last administered on 09/10/17at 11 :55; Start 09/07/17 at 12:00; Stop 09/10/17 at 18:18; Status DC Vitamin D (Vitamin D3) 50,000 unit WEEKLY PO Last administered on 09/14/17at 09: 37; Start 09/07/17 at 19:00 Divalproex Sodium (Depakote Sprinkles) 500 mg BID PO Last administered on at 08:08; Start 09/07/17 at 21:00; Stop 09/15/17 at 18:49; Status DC Vitamin D (Vitamin D3) 50,000 unit WEEKLY PO ; Start 09/10/17 at 16:00; Stop 09/10 at 16:00; Status DC Levothyroxine Sodium (Synthroid) 25 mcg DAILY07 PO Last administered on at 05:43; Start 09/11/17 at 07:00; Stop 09/17/17 at 09:34; Status DC Quetiapine Fumarate (SEROquel) 25 mg NOON PO Last administered on 09/13/17at 12: 19; Start 09/11/17 at 12:00; Stop 09/13/17 at 18:10; Status DC Duloxetine HCl (Cymbalta) 30 mg DAILY PO Last administered on 09/13/17at 08:28; Start 09/12/17 at 09:00; Stop 09/14/17 at 08:51; Status DC Duloxetine HCl (Cymbalta) 30 mg DAILY PO ; Start 09/14/17 at 09:00; Stop at 09:00; Status DC Buspirone HCl (Buspar) 5 mg BID@0900,1300 PO Last administered on 09/14/17at 09: 33; Start 09/12/17 at 09:00; Stop 09/14/17 at 10:37; Status DC Olanzapine (ZyPREXA ZYDIS) 1.25 mg PRN Q2HR PRN PO PSYCHOSIS Last administered on 09/14/17at 09:57; Start 09/11/17 at 18:30 Duloxetine HCl (Cymbalta) 20 mg DAILY PO ; Start 09/14/17 at 09:00; Stop at 09:00; Status DC Duloxetine HCl (Cymbalta) 60 mg DAILY PO Last administered on 09/17/17at 08:56; Start 09/14/17 at 09:00 Quetiapine Fumarate (SEROquel) 50 mg NOON PO Last administered on 09/17/17at 12: 03; Start 09/14/17 at 12:00 Buspirone HCl (Buspar) 5 mg [id number] PO Last administered on 09/17/17at 19:32; Start 09/14/17 at 13:00 Levothyroxine Sodium (Synthroid) 25 mcg DAILY06 PO ; Start 09/18/17 at 06:00 Active Scripts Active Reported Seroquel (Quetiapine Fumarate) 50 Mg Tablet 50 Mg PO BID Senna Plus Tablet (Sennosides/Docusate Sodium) 1 Each Tablet 1 Each PO BID Protonix (Pantoprazole Sodium) 40 Mg Tablet.dr 40 Mg PO BID Potassium Chloride 10 Meq Tablet.er 20 Meq PO DAILY Lisinopril 40 Mg Tablet 40 Mg PO DAILY Lasix (Furosemide) 20 Mg Tablet 20 Mg PO DAILY Effexor Xr (Venlafaxine Hcl) 75 Mg Cap.er.24h 75 Mg PO DAILY Depakote (Divalproex Sodium) 500 Mg Tablet.dr 500 Mg PO BID I have reviewed the current psychotropics carefully including drug interactions. Risk benefit ratio favors no change other than as noted in my dictated progress note. Diagnosis: Problems: (1) Agitation (2) Anxiety disorder (3) Impulse control disorder (4) Dementia, vascular, with depression (5) Dementia, vascular, with delusions (6) Dementia in Alzheimer's disease with depression (7) Dementia in Alzheimer's disease with delusions SIVA HUA MD Sep 17, 2017 22:09
--- NOTE | 2017-09-17 23:13 | PN ---
DATE: 09/15/2017 This late entry, date of service 09/15/2017, covers elements not covered in my initial note of 09/15/2017. SUBJECTIVE: I met with the patient evening of 09/15/2017. The patient has been resistive to medications, somewhat labile previous evening. Platelet count is in the 40s, and we will go ahead and stop the Depakote in case this is exacerbating low counts, which nursing staff have informed me Dr. Haas feels may be related to a primary hematological disorder. 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 In the meantime behaviorally, the patient remains intermittently labile, cursing at staff, swinging his fists in the air, resistive with medications and other times he does ____. REVIEW OF SYSTEMS: Ambulation impaired, in wheelchair. No CV, , pulmonary, eye, ENT system symptoms on review. He is hard of hearing. MENTAL STATUS EXAM: Oriented to himself and situations. He is rather pale looking. Speech has some latency, low in volume at times, loud at other times. Abstraction fair, computation impaired, language function intact, attention span short. Mood and affect, intermittently labile. LABORATORY DATA: Reviewed. IMPRESSION: Major depressive disorder with history of psychotic features; major neurocognitive disorder, early vascular with delusion, depression, behavioral disturbance. Rest unchanged. PLAN: As noted above, but continue Cymbalta, Seroquel, BuSpar. We may need to increase the BuSpar if behaviors worsen with stopping the Depakote. MAN Aleksey HUA MD DR: JENY/charlette JOB#: [id number] / [id number]
[2017-09-18] MEDS: LEVOTHYROXINE 25 MCG TABLET. PO SCH (05:29)
[2017-09-18 06:08] VITALS: BP 132/85
[2017-09-18] MEDS: SENNOSIDES/DOCUSATE 8.6/50MG TABLET. PO SCH ×2 (08:23→20:07)
[2017-09-18] MEDS: QUEtiapine 50 MG TABLET. PO SCH ×3 (08:23→20:07)
[2017-09-18] MEDS: DULoxetine HCL 60 MG CAPSULE.DR PO SCH (08:23)
[2017-09-18] MEDS: busPIRone 5 MG TABLET. PO SCH ×4 (08:24→20:07)
[2017-09-18 10:05] LABS: GFR 26.9; MAGNESIUM 2.3 mg/dL (1.8-2.4); TOTAL BILIRUBIN 0.3 mg/dL (0.2-1.0); TOTAL PROTEIN 6.9 g/dL (6.4-8.2)
[2017-09-18 10:41] LABS: ALBUMIN 2.7 g/dL (3.4-5.0); ALBUMIN/GLOBULIN RATIO 0.6 (1.0-1.7); CALCIUM 9.4 mg/dL (8.5-10.1); CREATININE 2.4 mg/dL (0.7-1.3); POTASSIUM 5.5 mmol/L (3.5-5.1)
[2017-09-18 13:54] LABS: WHITE BLOOD COUNT 4.3 x10^3/uL (4.0-11.0)
[2017-09-18 13:55] LABS: WHITE BLOOD COUNT 5.5 x10^3/uL (4.0-11.0)
[2017-09-18 15:49] VITALS: BP 113/76
--- NOTE | 2017-09-18 19:08 | PN ---
DATE: 09/16/2017 This late entry 09/16/2017 covers the elements not covered in my initial note of 09/16/2017. Met with the patient in the evening of 09/16/2017. Overall, the patient has been pleasant and smiling. No cursing is noted. His Depakote was discontinued and he done reasonably well despite this. REVIEW OF SYSTEMS: Ambulation impaired, in wheelchair. No CV, , pulmonary, eye system symptoms on review. Reliability poor. MENTAL STATUS EXAM: Oriented to himself and situation. Insight, judgment, recent memory is impaired. Language function intact. Attention span short. Mood and affect, lability is improved. LABORATORY DATA: Reviewed. IMPRESSION: Major depressive disorder with psychotic features. Major neurocognitive disorder, Alzheimer, vascular with depression, delusion. PLAN: Continue current psychotropics with the Depakote stopped. MAN Aleksey HUA MD DR: JENY/charlette JOB#: [id number] / [id number]
--- NOTE | 2017-09-18 21:07 | PDOC ---
Exam Note: Lawrence Note: Please also refer to the separate dictated note~for this date of service dictated separately.~Patient seen individually. Discussed the patient with Nursing staff reviewed the chart.~Reviewed interim history and current functioning. Reviewed vital signs,~Labs/ Radiology~and current medications noted below. Continue current treatment with the changes noted in the dictated addendum note Assessment: Vital Signs: Vital Signs Date Time Temp Pulse Resp B/P (MAP) Pulse Ox O2 Delivery O2 Flow Rate FiO2 09/18/17 15:49 97.0 89 20 113/76 (88) 94 09/17/17 06:12 Room Air I&O Intake and Output 09/18/17 07:00 Intake Total 480 ml Balance 480 ml Intake Oral 480 ml # Voids 1 # Bowel Movements 1 Labs: Laboratory Tests Test 09/18/17 10:19 Sodium Level 141 mmol/L (136-145) Potassium Level 5.5 mmol/L (3.5-5.1) H Chloride Level 104 mmol/L (98-107) Carbon Dioxide Level 22 mmol/L (21-32) Anion Gap 15 (6-14) H Blood Urea Nitrogen 47 mg/dL (8-26) H Creatinine 2.4 mg/dL (0.7-1.3) H Estimated GFR (Cockcroft-Gault) 26.9 BUN/Creatinine Ratio 20 (6-20) Glucose Level 97 mg/dL (70-99) Calcium Level 9.4 mg/dL (8.5-10.1) Magnesium Level 2.3 mg/dL (1.8-2.4) Total Bilirubin 0.3 mg/dL (0.2-1.0) Aspartate Amino Transferase (AST) 46 U/L (15-37) H Alanine Aminotransferase (ALT) 16 U/L (16-63) Alkaline Phosphatase 185 U/L (46-116) H Total Protein 6.9 g/dL (6.4-8.2) Albumin 2.7 g/dL (3.4-5.0) L Albumin/Globulin Ratio 0.6 (1.0-1.7) L Current Medications: Meds: Current Medications Acetaminophen (Tylenol) 650 mg PRN Q6HRS PRN PO PAIN / TEMP Last administered on 09/17/17at 19:34; Start 09/06/17 at 15:45 Multi-Ingredient Ointment (Analgesic [place]) 1 paulino PRN QID PRN TP MUSCLE PAIN; Start 09/06/17 at 15:45 Al Hydroxide/Mg Hydroxide (Mylanta Plus Xs) 15 ml PRN AFTMEALHC PRN PO DYSPEPSIA; Start 09/06/17 at 15:45 Magnesium Hydroxide (Milk Of Magnesia) 2,400 mg PRN QHS PRN PO CONSTIPATION Last administered on 09/17/17 16:57; Start 09/06/17 at 15:45 Furosemide (Lasix) 20 mg DAILY PO Last administered on 09/07/17 08:40; Start at 09:00; Stop 09/07/17 at 18:21; Status DC Pantoprazole Sodium (Protonix) 40 mg BID PO ; Start 09/06/17 at 21:00; Stop at 21:00; Status DC Quetiapine Fumarate (SEROquel) 50 mg BID PO Last administered on 09/18/17 20: 07; Start 09/06/17 at 21:00 Senna/Docusate Sodium (Senna Plus) 1 tab BID PO Last administered on 09/18/17at 20:07; Start 09/06/17 at 21:00 Divalproex Sodium (Depakote) 500 mg BID PO Last administered on 09/07/17 08:36 ; Start 09/06/17 at 21:00; Stop 09/07/17 at 18:28; Status DC Lisinopril (Prinivil) 40 mg DAILY PO Last administered on 09/07/17 08:40; Start 09/07/17 at 09:00; Stop 09/07/17 at 18:21; Status DC Potassium Chloride (Klor-Con) 20 meq DAILYWBKFT PO Last administered on 08:40; Start 09/07/17 at 08:00; Stop 09/07/17 at 18:21; Status DC Venlafaxine HCl (Effexor Xr) 75 mg DAILY PO Last administered on 09/11/17at 08:24 ; Start 09/07/17 at 09:00; Stop 09/11/17 at 18:22; Status DC Quetiapine Fumarate (SEROquel) 12.5 mg NOON PO Last administered on 09/10/17at 11 :55; Start 09/07/17 at 12:00; Stop 09/10/17 at 18:18; Status DC Vitamin D (Vitamin D3) 50,000 unit WEEKLY PO Last administered on 09/14/17at 09: 37; Start 09/07/17 at 19:00 Divalproex Sodium (Depakote Sprinkles) 500 mg BID PO Last administered on at 08:08; Start 09/07/17 at 21:00; Stop 09/15/17 at 18:49; Status DC Vitamin D (Vitamin D3) 50,000 unit WEEKLY PO ; Start 09/10/17 at 16:00; Stop 09/10 at 16:00; Status DC Levothyroxine Sodium (Synthroid) 25 mcg DAILY07 PO Last administered on at 05:43; Start 09/11/17 at 07:00; Stop 09/17/17 at 09:34; Status DC Quetiapine Fumarate (SEROquel) 25 mg NOON PO Last administered on 09/13/17at 12: 19; Start 09/11/17 at 12:00; Stop 09/13/17 at 18:10; Status DC Duloxetine HCl (Cymbalta) 30 mg DAILY PO Last administered on 09/13/17at 08:28; Start 09/12/17 at 09:00; Stop 09/14/17 at 08:51; Status DC Duloxetine HCl (Cymbalta) 30 mg DAILY PO ; Start 09/14/17 at 09:00; Stop at 09:00; Status DC Buspirone HCl (Buspar) 5 mg BID@0900,1300 PO Last administered on 09/14/17at 09: 33; Start 09/12/17 at 09:00; Stop 09/14/17 at 10:37; Status DC Olanzapine (ZyPREXA ZYDIS) 1.25 mg PRN Q2HR PRN PO PSYCHOSIS Last administered on 09/14/17at 09:57; Start 09/11/17 at 18:30 Duloxetine HCl (Cymbalta) 20 mg DAILY PO ; Start 09/14/17 at 09:00; Stop at 09:00; Status DC Duloxetine HCl (Cymbalta) 60 mg DAILY PO Last administered on 09/18/17at 08:23; Start 09/14/17 at 09:00 Quetiapine Fumarate (SEROquel) 50 mg NOON PO Last administered on 09/18/17at 11: 59; Start 09/14/17 at 12:00 Buspirone HCl (Buspar) 5 mg [id number] PO Last administered on 09/18/17at 20:07; Start 09/14/17 at 13:00 Levothyroxine Sodium (Synthroid) 25 mcg DAILY06 PO Last administered on at 05:29; Start 09/18/17 at 06:00 Active Scripts Active Reported Seroquel (Quetiapine Fumarate) 50 Mg Tablet 50 Mg PO BID Senna Plus Tablet (Sennosides/Docusate Sodium) 1 Each Tablet 1 Each PO BID Protonix (Pantoprazole Sodium) 40 Mg Tablet.dr 40 Mg PO BID Potassium Chloride 10 Meq Tablet.er 20 Meq PO DAILY Lisinopril 40 Mg Tablet 40 Mg PO DAILY Lasix (Furosemide) 20 Mg Tablet 20 Mg PO DAILY Effexor Xr (Venlafaxine Hcl) 75 Mg Cap.er.24h 75 Mg PO DAILY Depakote (Divalproex Sodium) 500 Mg Tablet.dr 500 Mg PO BID I have reviewed the current psychotropics carefully including drug interactions. Risk benefit ratio favors no change other than as noted in my dictated progress note. Diagnosis: Problems: (1) Agitation (2) Anxiety disorder (3) Impulse control disorder (4) Dementia, vascular, with depression (5) Dementia, vascular, with delusions (6) Dementia in Alzheimer's disease with depression (7) Dementia in Alzheimer's disease with delusions SIVA HUA MD Sep 18, 2017 21:07
--- NOTE | 2017-09-19 04:25 | PN ---
DATE: 09/17/2017 This is a late entry for 09/17, covers elements not covered in my initial note of 09/17. Met with the patient on the evening of 09/17. The patient was quite labile, cursing staff in the evening, swinging fists in the air, resistive with medications. During the day, he was calm, more cooperative with meds and assessment. Speech is garbled. Depakote was stopped due to his platelet counts and we will be repeating labs to see if this has improved. REVIEW OF SYSTEMS: Hard of hearing; impaired ambulation, in wheelchair. No CV, , pulmonary, eye system symptoms on review. MENTAL STATUS EXAMINATION: Oriented to himself and situation. Speech, often responses monosyllabic. Abstraction fair. Computation impaired. Language function intact. Attention span short. Mood and affect remain somewhat labile. LABORATORY DATA: Reviewed. IMPRESSION: Major depressive disorder with psychotic features; major neurocognitive disorder, vascular with delusion; depression. Rest unchanged. PLAN: Continue psychotropics mentioned in my initial note. Check a platelet count. MAN Aleksey HUA MD DR: JENY/charlette JOB#: [id number] / [id number]
[2017-09-19] MEDS: LEVOTHYROXINE 25 MCG TABLET. PO SCH (06:14)
[2017-09-19 07:05] VITALS: BP 124/66
[2017-09-19] MEDS: DULoxetine HCL 60 MG CAPSULE.DR PO SCH (09:29)
[2017-09-19] MEDS: busPIRone 5 MG TABLET. PO SCH ×4 (09:29→20:44)
[2017-09-19] MEDS: SENNOSIDES/DOCUSATE 8.6/50MG TABLET. PO SCH ×2 (09:29→20:44)
[2017-09-19] MEDS: QUEtiapine 50 MG TABLET. PO SCH ×3 (09:29→20:44)
[2017-09-19 15:50] VITALS: BP 126/78
--- NOTE | 2017-09-19 21:04 | PDOC ---
Exam Note: [place] Note: Please also refer to the separate dictated note~for this date of service dictated separately.~Patient seen individually. Discussed the patient with Nursing staff reviewed the chart.~Reviewed interim history and current functioning. Reviewed vital signs,~Labs/ Radiology~and current medications noted below. Continue current treatment with the changes noted in the dictated addendum note Assessment: Vital Signs: Vital Signs Date Time Temp Pulse Resp B/P (MAP) Pulse Ox O2 Delivery O2 Flow Rate FiO2 09/19/17 15:50 96.8 71 20 126/78 (94) 95 09/17/17 06:12 Room Air I&O Intake and Output 09/19/17 07:00 Intake Total 820 ml Balance 820 ml Intake Oral 820 ml # Voids 1 # Bowel Movements 1 Current Medications: Meds: Current Medications Acetaminophen (Tylenol) 650 mg PRN Q6HRS PRN PO PAIN / TEMP Last administered on 09/17/17at 19:34; Start 09/06/17 at 15:45 Multi-Ingredient Ointment (Analgesic [place]) 1 paulino PRN QID PRN TP MUSCLE PAIN; Start 09/06/17 at 15:45 Al Hydroxide/Mg Hydroxide (Mylanta Plus Xs) 15 ml PRN AFTMEALHC PRN PO DYSPEPSIA; Start 09/06/17 at 15:45 Magnesium Hydroxide (Milk Of Magnesia) 2,400 mg PRN QHS PRN PO CONSTIPATION Last administered on 09/17/17at 16:57; Start 09/06/17 at 15:45 Furosemide (Lasix) 20 mg DAILY PO Last administered on 09/07/17at 08:40; Start at 09:00; Stop 09/07/17 at 18:21; Status DC Pantoprazole Sodium (Protonix) 40 mg BID PO ; Start 09/06/17 at 21:00; Stop at 21:00; Status DC Quetiapine Fumarate (SEROquel) 50 mg BID PO Last administered on 09/19/17at 20: 44; Start 09/06/17 at 21:00 Senna/Docusate Sodium (Senna Plus) 1 tab BID PO Last administered on 09/19/17at 20:44; Start 09/06/17 at 21:00 Divalproex Sodium (Depakote) 500 mg BID PO Last administered on 09/07/17 08:36 ; Start 09/06/17 at 21:00; Stop 09/07/17 at 18:28; Status DC Lisinopril (Prinivil) 40 mg DAILY PO Last administered on 09/07/17 08:40; Start 09/07/17 at 09:00; Stop 09/07/17 at 18:21; Status DC Potassium Chloride (Klor-Con) 20 meq DAILYWBKFT PO Last administered on 08:40; Start 09/07/17 at 08:00; Stop 09/07/17 at 18:21; Status DC Venlafaxine HCl (Effexor Xr) 75 mg DAILY PO Last administered on 09/11/17 08:24 ; Start 09/07/17 at 09:00; Stop 09/11/17 at 18:22; Status DC Quetiapine Fumarate (SEROquel) 12.5 mg NOON PO Last administered on 09/10/17at 11 :55; Start 09/07/17 at 12:00; Stop 09/10/17 at 18:18; Status DC Vitamin D (Vitamin D3) 50,000 unit WEEKLY PO Last administered on 09/14/17at 09: 37; Start 09/07/17 at 19:00 Divalproex Sodium (Depakote Sprinkles) 500 mg BID PO Last administered on at 08:08; Start 09/07/17 at 21:00; Stop 09/15/17 at 18:49; Status DC Vitamin D (Vitamin D3) 50,000 unit WEEKLY PO ; Start 09/10/17 at 16:00; Stop 09/10 at 16:00; Status DC Levothyroxine Sodium (Synthroid) 25 mcg DAILY07 PO Last administered on at 05:43; Start 09/11/17 at 07:00; Stop 09/17/17 at 09:34; Status DC Quetiapine Fumarate (SEROquel) 25 mg NOON PO Last administered on 09/13/17at 12: 19; Start 09/11/17 at 12:00; Stop 09/13/17 at 18:10; Status DC Duloxetine HCl (Cymbalta) 30 mg DAILY PO Last administered on 09/13/17at 08:28; Start 09/12/17 at 09:00; Stop 09/14/17 at 08:51; Status DC Duloxetine HCl (Cymbalta) 30 mg DAILY PO ; Start 09/14/17 at 09:00; Stop at 09:00; Status DC Buspirone HCl (Buspar) 5 mg BID@0900,1300 PO Last administered on 09/14/17at 09: 33; Start 09/12/17 at 09:00; Stop 09/14/17 at 10:37; Status DC Olanzapine (ZyPREXA ZYDIS) 1.25 mg PRN Q2HR PRN PO PSYCHOSIS Last administered on 09/14/17at 09:57; Start 09/11/17 at 18:30 Duloxetine HCl (Cymbalta) 20 mg DAILY PO ; Start 09/14/17 at 09:00; Stop at 09:00; Status DC Duloxetine HCl (Cymbalta) 60 mg DAILY PO Last administered on 09/19/17at 09:29; Start 09/14/17 at 09:00 Quetiapine Fumarate (SEROquel) 50 mg NOON PO Last administered on 09/19/17at 12: 03; Start 09/14/17 at 12:00 Buspirone HCl (Buspar) 5 mg [id number] PO Last administered on 09/19/17at 20:44; Start 09/14/17 at 13:00 Levothyroxine Sodium (Synthroid) 25 mcg DAILY06 PO Last administered on at 06:14; Start 09/18/17 at 06:00 Sodium Chloride 1,000 ml @ 75 mls/hr [id number] IV ; Start 09/19/17 at 18:45 Active Scripts Active Reported Seroquel (Quetiapine Fumarate) 50 Mg Tablet 50 Mg PO BID Senna Plus Tablet (Sennosides/Docusate Sodium) 1 Each Tablet 1 Each PO BID Protonix (Pantoprazole Sodium) 40 Mg Tablet.dr 40 Mg PO BID Potassium Chloride 10 Meq Tablet.er 20 Meq PO DAILY Lisinopril 40 Mg Tablet 40 Mg PO DAILY Lasix (Furosemide) 20 Mg Tablet 20 Mg PO DAILY Effexor Xr (Venlafaxine Hcl) 75 Mg Cap.er.24h 75 Mg PO DAILY Depakote (Divalproex Sodium) 500 Mg Tablet. 500 Mg PO BID I have reviewed the current psychotropics carefully including drug interactions. Risk benefit ratio favors no change other than as noted in my dictated progress note. Diagnosis: Problems: (1) Agitation (2) Anxiety disorder (3) Impulse control disorder (4) Dementia, vascular, with depression (5) Dementia, vascular, with delusions (6) Dementia in Alzheimer's disease with depression (7) Dementia in Alzheimer's disease with delusions SIVA HUA MD Sep 19, 2017 21:04
--- NOTE | 2017-09-19 22:50 | PN ---
DATE: 09/18/2017 This late entry date of service 09/18/2017 covers elements not covered in my initial note 09/18/2017. I met with the patient evening of 09/18/2017. SUBJECTIVE: The patient has been fairly calm, bit confused, difficult to understand at times. Platelet count 38, still low despite discontinuing the Depakote, potassium 5.5. REVIEW OF SYSTEMS: Ambulation impaired, in wheelchair. No CV, , pulmonary, eye system symptoms on review. He is hard of hearing. MENTAL STATUS EXAM: Oriented to himself, at times situation. Speech, often responses monosyllabic. Abstraction fair, computation impaired, language function intact. Mood and affect dysphoric, anxious at times, somewhat labile. LABORATORY DATA: Reviewed. IMPRESSION: Major depressive disorder with psychotic features; major neurocognitive disorder, early vascular with delusion, depression. PLAN: Continue psychotropics mentioned in my initial note. MAN Aleksey HUA MD DR: JENY/charlette JOB#: [id number] / [id number]
[2017-09-19] MEDS: IV NORMAL SALINE 1,000ML 1,000 ML IV SCH (23:31)
[2017-09-20] MEDS: LEVOTHYROXINE 25 MCG TABLET. PO SCH (05:39)
[2017-09-20 06:24] VITALS: BP 110/75
[2017-09-20 07:50] LABS: CALCIUM 8.9 mg/dL (8.5-10.1); GFR 33.2; POTASSIUM 4.7 mmol/L (3.5-5.1)
[2017-09-20] MEDS: SENNOSIDES/DOCUSATE 8.6/50MG TABLET. PO SCH (09:06)
[2017-09-20] MEDS: busPIRone 5 MG TABLET. PO SCH ×2 (09:06→12:35)
[2017-09-20] MEDS: QUEtiapine 50 MG TABLET. PO SCH ×2 (09:06→12:00)
[2017-09-20] MEDS: DULoxetine HCL 60 MG CAPSULE.DR PO SCH (09:06)
[2017-09-20] MEDS: IV NORMAL SALINE 1,000ML 1,000 ML IV SCH (10:21)
[2017-09-20] MEDS ORDERED: ACET325T9 PO (11:35)
[2017-09-20] MEDS ORDERED: CHOL500016 PO (11:36)
[2017-09-20] MEDS ORDERED: LEVO25TA55 PO (11:37)
[2017-09-20] MEDS ORDERED: DULO60CA6 PO (11:37)
[2017-09-20] MEDS ORDERED: OLAN2.5T3 PO (11:38)
[2017-09-20] MEDS ORDERED: QUET50TA5 PO (11:39)
[2017-09-20] MEDS ORDERED: BUSP5TAB PO (11:40)
--- NOTE | 2017-09-20 21:07 | PDOC ---
Exam Note: Lawrence Note: Please also refer to the separate dictated note~for this date of service dictated separately.~Patient seen individually. Discussed the patient with Nursing staff reviewed the chart.~Reviewed interim history and current functioning. Reviewed vital signs,~Labs/ Radiology~and current medications noted below. Continue current treatment with the changes noted in the dictated addendum note Assessment: Vital Signs: Vital Signs Date Time Temp Pulse Resp B/P (MAP) Pulse Ox O2 Delivery O2 Flow Rate FiO2 09/20/17 06:24 98.0 69 20 110/75 (87) 92 09/17/17 06:12 Room Air I&O Intake and Output 09/20/17 07:00 Intake Total 1780 ml Balance 1780 ml Intake Oral 780 ml IV Total 1000 ml Labs: Laboratory Tests Test 09/20/17 07:15 09/20/17 11:04 Sodium Level 142 mmol/L (136-145) Potassium Level 4.7 mmol/L (3.5-5.1) Chloride Level 107 mmol/L (98-107) Carbon Dioxide Level 24 mmol/L (21-32) Anion Gap 11 (6-14) Blood Urea Nitrogen 43 mg/dL (8-26) H Creatinine 2.0 mg/dL (0.7-1.3) H Estimated GFR (Cockcroft-Gault) 33.2 Glucose Level 91 mg/dL (70-99) Calcium Level 8.9 mg/dL (8.5-10.1) Glucose (Fingerstick) 104 mg/dL (70-99) H Current Medications: Meds: Current Medications Acetaminophen (Tylenol) 650 mg PRN Q6HRS PRN PO PAIN / TEMP Last administered on 09/17/17at 19:34; Start 09/06/17 at 15:45; Stop 09/20/17 at 16:13; Status DC Multi-Ingredient Ointment (Analgesic [place]) 1 paulino PRN QID PRN TP MUSCLE PAIN; Start 09/06/17 at 15:45; Stop 09/20/17 at 16:13; Status DC Al Hydroxide/Mg Hydroxide (Mylanta Plus Xs) 15 ml PRN AFTMEALHC PRN PO DYSPEPSIA; Start 09/06/17 at 15:45; Stop 09/20/17 at 16:13; Status DC Magnesium Hydroxide (Milk Of Magnesia) 2,400 mg PRN QHS PRN PO CONSTIPATION Last administered on 09/17/17at 16:57; Start 09/06/17 at 15:45; Stop 09/20/17 at 16:13; Status DC Furosemide (Lasix) 20 mg DAILY PO Last administered on 09/07/17at 08:40; Start at 09:00; Stop 09/07/17 at 18:21; Status DC Pantoprazole Sodium (Protonix) 40 mg BID PO ; Start 09/06/17 at 21:00; Stop at 21:00; Status DC Quetiapine Fumarate (SEROquel) 50 mg BID PO Last administered on 09/20/17at 09: 06; Start 09/06/17 at 21:00; Stop 09/20/17 at 16:13; Status DC Senna/Docusate Sodium (Senna Plus) 1 tab BID PO Last administered on 09/20/17at 09:06; Start 09/06/17 at 21:00; Stop 09/20/17 at 16:13; Status DC Divalproex Sodium (Depakote) 500 mg BID PO Last administered on 09/07/17at 08:36 ; Start 09/06/17 at 21:00; Stop 09/07/17 at 18:28; Status DC Lisinopril (Prinivil) 40 mg DAILY PO Last administered on 09/07/17at 08:40; Start 09/07/17 at 09:00; Stop 09/07/17 at 18:21; Status DC Potassium Chloride (Klor-Con) 20 meq DAILYWBKFT PO Last administered on at 08:40; Start 09/07/17 at 08:00; Stop 09/07/17 at 18:21; Status DC Venlafaxine HCl (Effexor Xr) 75 mg DAILY PO Last administered on 09/11/17at 08:24 ; Start 09/07/17 at 09:00; Stop 09/11/17 at 18:22; Status DC Quetiapine Fumarate (SEROquel) 12.5 mg NOON PO Last administered on 09/10/17at 11 :55; Start 09/07/17 at 12:00; Stop 09/10/17 at 18:18; Status DC Vitamin D (Vitamin D3) 50,000 unit WEEKLY PO Last administered on 09/14/17at 09: 37; Start 09/07/17 at 19:00; Stop 09/20/17 at 16:13; Status DC Divalproex Sodium (Depakote Sprinkles) 500 mg BID PO Last administered on at 08:08; Start 09/07/17 at 21:00; Stop 09/15/17 at 18:49; Status DC Vitamin D (Vitamin D3) 50,000 unit WEEKLY PO ; Start 09/10/17 at 16:00; Stop 09/10 at 16:00; Status DC Levothyroxine Sodium (Synthroid) 25 mcg DAILY07 PO Last administered on at 05:43; Start 09/11/17 at 07:00; Stop 09/17/17 at 09:34; Status DC Quetiapine Fumarate (SEROquel) 25 mg NOON PO Last administered on 09/13/17at 12: 19; Start 09/11/17 at 12:00; Stop 09/13/17 at 18:10; Status DC Duloxetine HCl (Cymbalta) 30 mg DAILY PO Last administered on 09/13/17at 08:28; Start 09/12/17 at 09:00; Stop 09/14/17 at 08:51; Status DC Duloxetine HCl (Cymbalta) 30 mg DAILY PO ; Start 09/14/17 at 09:00; Stop at 09:00; Status DC Buspirone HCl (Buspar) 5 mg BID@0900,1300 PO Last administered on 09/14/17at 09: 33; Start 09/12/17 at 09:00; Stop 09/14/17 at 10:37; Status DC Olanzapine (ZyPREXA ZYDIS) 1.25 mg PRN Q2HR PRN PO PSYCHOSIS Last administered on 09/14/17at 09:57; Start 09/11/17 at 18:30; Stop 09/20/17 at 16:13; Status DC Duloxetine HCl (Cymbalta) 20 mg DAILY PO ; Start 09/14/17 at 09:00; Stop at 09:00; Status DC Duloxetine HCl (Cymbalta) 60 mg DAILY PO Last administered on 09/20/17at 09:06; Start 09/14/17 at 09:00; Stop 09/20/17 at 16:13; Status DC Quetiapine Fumarate (SEROquel) 50 mg NOON PO Last administered on 09/19/17at 12: 03; Start 09/14/17 at 12:00; Stop 09/20/17 at 16:13; Status DC Buspirone HCl (Buspar) 5 mg [id number] PO Last administered on 09/20/17at 09:06; Start 09/14/17 at 13:00; Stop 09/20/17 at 16:13; Status DC Levothyroxine Sodium (Synthroid) 25 mcg DAILY06 PO Last administered on at 05:39; Start 09/18/17 at 06:00; Stop 09/20/17 at 16:13; Status DC Sodium Chloride 1,000 ml @ 75 mls/hr [id number] IV Last administered on at 10:21; Start 09/19/17 at 18:45; Stop 09/20/17 at 16:13; Status DC Active Scripts Active Reported Buspirone Hcl 5 Mg Tablet 5 Mg PO [id number] Seroquel (Quetiapine Fumarate) 50 Mg Tablet 50 Mg PO NOON Zyprexa (Olanzapine) 2.5 Mg Tablet 1.25 Mg PO PRN Q2HR PRN Synthroid (Levothyroxine Sodium) 25 Mcg Tablet 25 Mcg PO DAILYAC Cymbalta (Duloxetine Hcl) 60 Mg Capsule.dr 60 Mg PO DAILY Vitamin D3 (Cholecalciferol (Vitamin D3)) 5,000 Unit Tablet 50,000 Unit PO WEEKLY Tylenol (Acetaminophen) 325 Mg Tablet 650 Mg PO PRN Q6HRS PRN Seroquel (Quetiapine Fumarate) 50 Mg Tablet 50 Mg PO BID Senna Plus Tablet (Sennosides/Docusate Sodium) 1 Each Tablet 1 Each PO BID I have reviewed the current psychotropics carefully including drug interactions. Risk benefit ratio favors no change other than as noted in my dictated progress note. Diagnosis: Problems: (1) Anxiety disorder (2) Impulse control disorder (3) Dementia, vascular, with depression (4) Dementia, vascular, with delusions (5) Dementia in Alzheimer's disease with depression (6) Dementia in Alzheimer's disease with delusions SIVA HUA MD Sep 20, 2017 21:07
--- NOTE | 2017-09-20 21:50 | PN ---
DATE: 09/19/2017 This is a late entry for 09/19/2017 covers elements not covered in my initial note of 09/19/2017. SUBJECTIVE: I met with the patient in the evening of 09/19/2017. The patient slept 6-3/4 hours previous evening. He is quite agitated in the morning, yelling, cursing at staff, not physically aggressive. Depakote has been stopped and some of the mood lability could be a consequence of this, but we had to stop the Depakote to see if the platelet counts improved. REVIEW OF SYSTEMS: Ambulation impaired, in wheelchair, hard of hearing. No CV, , pulmonary, eye system symptoms on review. MENTAL STATUS EXAM: Oriented to himself and situation. Speech moderate latency, low in rate and rhythm, low in volume. Abstraction fair, computation impaired, language function intact. Short-term memory has some impairment. LABORATORY DATA: Reviewed. IMPRESSION: Unchanged from initial note. PLAN: Continue current psychotropics. BuSpar has been increased. May need to increase it further, if agitation resurfaces. Maintain Seroquel. MAN Aleksey HUA MD DR: JENY/charlette JOB#: [id number] / [id number]
--- NOTE | 2017-09-22 11:31 | DS ---
DATE OF DISCHARGE: 09/20/2017 DISCHARGE SUMMARY/PSYCHIATRIC PROGRESS NOTE This is a late entry, date of service 09/20/2017, covers elements not covered in my initial note 09/20/2017. REASON FOR ADMISSION: Please refer to the admission history for details. Briefly, the patient is a 71-year-old male from [facility] in [place]. Referred by his primary care physician/psychiatrist on account of yelling, cursing, swinging at staff with a closed fist. Behaviors were deemed dangerous, volatile within the context of his depression/dementia and he was referred for inpatient psychiatric stabilization. SIGNIFICANT FINDINGS AND CLINICAL COURSE: Following admission, the patient was seen daily individually by myself, followed medically per Dr. Haas/Dr. Hodge/Dr. Retana. He was noted to be more oriented, then it seemed initially, but he was quite hard of hearing and not very verbal, speaking in a very low voice, which made communication difficult. He was depressed, somewhat volatile. Adjustments were made in his psychotropics and he seemed to respond to a combination of Seroquel 50 mg b.i.d. and 50 mg at noon, Cymbalta 60 mg a day, BuSpar 5 mg 4 times a day, Zyprexa p.r.n. He was also on Depakote, but this was discontinued as his platelet counts were low even though the primary cause for that low count was perhaps something other than Depakote we felt stopping the Depakote might help with this anyway. There was negative effects behaviorally from stopping the Depakote; however. gradually mood appeared to improve, he was less volatile, more cooperative. REVIEW OF SYSTEMS: Prior to discharge 09/20/2017; ambulation impaired, in wheelchair, hard of hearing. No CV, , pulmonary, eye system symptoms on review. MENTAL STATUS EXAM: Oriented to himself and situation. Speech, low in volume, often responses monosyllabic. Abstraction fair. Computation impaired. Language function intact. Attention span short. Mood and affect much less labile. LABORATORY DATA: Reviewed. CONDITION AT DISCHARGE: Improved. FINAL DIAGNOSES: Major depressive disorder with psychotic features in partial remission; major neurocognitive disorder, vascular with delusion, depression, behavioral disturbance; anxiety disorder, unspecified; impulse control disorder, unspecified. Rest unchanged from admission. DISCHARGE MEDICATIONS: Please refer to the . DISCHARGE INSTRUCTIONS: Outpatient psychiatric and medical followup at [facility]. Time for discharge day management greater than 30 minutes. SIVA HUA MD DR: JENY/charlette JOB#: [id number] / [id number]
== END 2017-09-20 16:10 | disposition short-term general hospital (02) | DRG 885 ==
LOC: ER 13:48 → GEROPSY 15:17
PROVIDERS: ADMIT Psychiatry & Neurology Psychiatry; ATTEND Psychiatry & Neurology Psychiatry
DX: F32.3 Major depressive disorder, single episode, severe with psychotic features (principal); F02.81 Dementia in other diseases classified elsewhere, unspecified severity, with behavioral disturbance; N18.9 Chronic kidney disease, unspecified; D69.6 Thrombocytopenia, unspecified; F01.51 Vascular dementia, unspecified severity, with behavioral disturbance; G30.9 Alzheimer's disease, unspecified; D72.820 Lymphocytosis (symptomatic); F41.9 Anxiety disorder, unspecified; K59.09 Other constipation; F42.9 Obsessive-compulsive disorder, unspecified; F63.9 Impulse disorder, unspecified; F43.10 Post-traumatic stress disorder, unspecified; H91.90 Unspecified hearing loss, unspecified ear; I12.9 Hypertensive chronic kidney disease with stage 1 through stage 4 chronic kidney disease, or unspecified chronic kidney disease; G47.00 Insomnia, unspecified; K21.9 Gastro-esophageal reflux disease without esophagitis; Z86.73 Personal history of transient ischemic attack (TIA), and cerebral infarction without residual deficits
CPT/HCPCS: 36415; 76770; 80048; 80053; 80061; 80164; 80307; 81001; 82306; 82607; 82947; 83036; 83540; 83550; 83615; 83735; 84436; 84443; 84480; 85007; 85025; 85027; 86593; 92526; 93005; 92610; 97110; 97112; 97116; 99285-25; G0479; J7030